=== PATIENT | female | born 1965 | race Caucasian/White ===

== ENCOUNTER → 2016-10-29 | Outpatient (REF) | payer OTHER ==
[2016-10-29 13:36] LABS: ALBUMIN 3.9 GM/DL (3.2-5.2); ALBUMIN/GLOBULIN RATIO 1.18 (1.00-1.93); ALKALINE PHOSPHATASE 94 U/L (45-117); ALT/SGPT 14 U/L (12-78); ANION GAP 9 MEQ/L (8-16); AST/SGOT 12 U/L (15-37); BILIRUBIN,TOTAL 0.7 MG/DL (0.2-1.0); BLOOD UREA NITROGEN 11 MG/DL (7-18); CALCIUM LEVEL 8.9 MG/DL (8.5-10.1); CARBON DIOXIDE LEVEL 26 MEQ/L (21-32); CHLORIDE LEVEL 109 MEQ/L (98-107); CHOLESTEROL LEVEL 216 MG/DL (<200); CREATININE FOR GFR 0.74 MG/DL (0.55-1.02); GLOMERULAR FILTRATION RATE > 60.0 (>51); GLUCOSE, FASTING 78 MG/DL (70-105); POTASSIUM SERUM 4.3 MEQ/L (3.5-5.1); SODIUM LEVEL 144 MEQ/L (136-145); TOTAL PROTEIN 7.2 GM/DL (6.4-8.2); TRIGLYCERIDES LEVEL 191 MG/DL (<150)
== END ==
LOC: M SFHCPLAZ 10:02
PROVIDERS: ATTEND Internal Medicine
DX: E78.5 Hyperlipidemia, unspecified (principal); E55.9 Vitamin D deficiency, unspecified

== ENCOUNTER 2016-12-27 17:52 | Emergency (ER) | payer OTHER ==
[~2016-12-27] VITALS: Ht 162.6 cm; Wt 62.6 kg
[2016-12-27] MEDS ORDERED: ZYRT10CA PO (18:13)
[2016-12-27] MEDS ORDERED: VITA400C29 PO (18:13)
[2016-12-27] MEDS ORDERED: FAMOTIDINE IV BAG 20 MG in APPROPRIATE DILUENT 1 EA IV ONE (18:30)
[2016-12-27] MEDS ORDERED: NS 1,000 ML IV ONE (18:30)
[2016-12-27] MEDS ORDERED: diphenhydrAMINE INJ 50MG/ML VIAL (J1200) IV ONE (18:30)
[2016-12-27] MEDS ORDERED: methylPREDNISolone INJ 125 MG/2 ML VIAL (J2930) IV ONE (18:30)
[2016-12-27 19:27] VITALS: BP 140/72
[2016-12-27] MEDS ORDERED: BENA25TA9 PO (19:55)
[2016-12-27] MEDS ORDERED: PRED20TA PO (19:55)
[2016-12-27] MEDS ORDERED: RANI15TA PO (19:55)
== END 2016-12-27 20:15 | disposition home or self-care (01) ==
LOC: M ED 18:49
DX: T78.40XA Allergy, unspecified, initial encounter (principal); L50.9 Urticaria, unspecified
CPT/HCPCS: 94760; 96361; 96365; 96366; 96375; 99283; J1200; J2930

== ENCOUNTER → 2017-08-05 | Outpatient (REF) | payer OTHER ==
[~2017-08-05] MED LIST: BENA25TA10 PO; PRED20TA PO; RANI15TA PO; VITA-110 PO; ZYRT10CA PO
== END ==
LOC: M SFHCWAGY 09:29
PROVIDERS: ATTEND Nurse Practitioner Family
DX: Z12.4 Encounter for screening for malignant neoplasm of cervix (principal)

== ENCOUNTER → 2017-08-12 | Outpatient (CLI) | payer OTHER ==
--- NOTE | 2017-08-12 18:10 | REPMRS ---
Patient History The patient states she had a clinical breast exam in 07/2017. Patient is postmenopausal. Family history of breast cancer in 2 maternal aunts. Benign excisional biopsy of the right breast, 1989. Taking estrogen. Digital Woman Screen Mammo: August 12, 2017 - Exam #: [id number] Bilateral CC and MLO view(s) were taken. Technologist: Spring Arias, Technologist Prior study comparison: July 26, 2016, digital woman screen mammo performed at [facility]. 2014, digital bilateral screening mammo, performed at [facility]. FINDINGS: There are scattered fibroglandular densities. There has been no change in the appearance of the mammogram from the prior studies. There is a mild amount of residual fibroglandular tissue which is fairly symmetric. There is no interval development of dominant mass, architectural distortion, or clustered microcalcification suggestive of malignancy. No significant changes when compared with prior studies. ASSESSMENT: BI-RADS/ACR category 1 mammogram. Negative. Recommendation Routine screening mammogram in 1 year (for women over age 40). This mammogram was interpreted with the aid of an FDA-approved computer-aided dectection system. A. Negative x-ray reports should not delay biopsy if a dominant or clinically suspicious mass is present. B. Four to eight percent of cancers are not identified by mammography. C. Adenosis and dense breast may obscure an underlying neoplasm. Electronically Signed By: Dionisio Jaramillo MD 08/12/17 1487
== END ==
LOC: M WHC 14:04
PROVIDERS: ATTEND Nurse Practitioner Family
DX: Z12.31 Encounter for screening mammogram for malignant neoplasm of breast (principal)

== ENCOUNTER → 2017-08-22 | Outpatient (CLI) | payer OTHER ==
--- NOTE | 2017-08-22 11:43 | REP ---
Limited pelvic, bladder sonography: History: Bladder prolapse. Findings: Transabdominal scanning demonstrates smooth bladder ventura. No extravesical lesion is seen. Pre-void bladder volume is calculated at 123 ml. Postvoid bladder volume is calculated at 9.8 ml. Emptying ureteral jets are confirmed on color Doppler interrogation of the bladder lumen bilaterally. Impression: No abnormality noted.
--- NOTE | 2017-08-22 11:53 | REP ---
Pelvic ultrasound including transabdominal and endovaginal imaging. The bladder is partially distended. The uterus is anteverted but the fundus is slightly retroflexed. The uterus is mildly enlarged measuring 11.1 x 4.8 x 5.5 cm. The endometrium measures 7.7 mm thickness. This would be thickened in a postmenopausal female but normal in a premenopausal female. The right ovary is normal size measuring 1.9 x 1.1 x 2.1 cm. There is no dominant mass or cyst in the right ovary. The left ovary is normal size measuring 2.6 x 2.1 x 2.6 cm. There is a 2 cm simple cyst in the right ovary. No free fluid in the pelvis. Impression: There is a 2 cm simple cyst in the left ovary. Otherwise, essentially negative pelvic ultrasound. Signed by Monroe Roa MD 08/22/2017 11:45 A
== END ==
LOC: M WHC 09:53
PROVIDERS: ATTEND Obstetrics & Gynecology
DX: N81.10 Cystocele, unspecified (principal); N81.6 Rectocele; N81.2 Incomplete uterovaginal prolapse

== ENCOUNTER → 2018-03-06 | Outpatient (REF) | payer OTHER ==
[2018-03-06 11:55] LABS: HEMOGLOBIN 15.2 g/dl (12.0-15.5); MEAN CORPUSCULAR HEMOGLOBIN 28.7 pg (27.0-33.0); MEAN CORPUSCULAR HGB CONC 34.5 g/dl (32.0-36.5); PLATELET COUNT, AUTOMATED 259 10^3/uL (150-450); RED CELL DISTRIBUTION WIDTH 13.2 % (11.5-14.5); WHITE BLOOD COUNT 5.1 10^3/uL (4.0-10.0)
[2018-03-06 12:42] LABS: ALBUMIN 3.9 GM/DL (3.2-5.2); ALBUMIN/GLOBULIN RATIO 1.22 (1.00-1.93); ALKALINE PHOSPHATASE 93 U/L (45-117); ALT/SGPT 26 U/L (12-78); ANION GAP 8 MEQ/L (8-16); AST/SGOT 13 U/L (7-37); BILIRUBIN,TOTAL 0.5 MG/DL (0.2-1.0); BLOOD UREA NITROGEN 12 MG/DL (7-18); CALCIUM LEVEL 8.9 MG/DL (8.5-10.1); CARBON DIOXIDE LEVEL 28 MEQ/L (21-32); CHLORIDE LEVEL 107 MEQ/L (98-107); CHOLESTEROL LEVEL 259 MG/DL (<200); CHOLESTEROL RISK RATIO 4.046 (<5); CREATININE FOR GFR 0.72 MG/DL (0.55-1.30); GLOMERULAR FILTRATION RATE > 60.0 (>51); GLUCOSE, FASTING 90 MG/DL (70-100); HDL CHOLESTEROL 64 MG/DL (>40); LDL CHOLESTEROL 136.8 MG/DL (<100); NON-HDL-C 195 MG/DL; POTASSIUM SERUM 4.3 MEQ/L (3.5-5.1); SODIUM LEVEL 143 MEQ/L (136-145); TOTAL PROTEIN 7.1 GM/DL (6.4-8.2); TRIGLYCERIDES LEVEL 291 MG/DL (<150)
[2018-03-06 12:43] LABS: TOTAL 25(OH) VITAMIN D 17.1 NG/ML (30.0-100.0)
== END ==
LOC: M SFHCPLAZ 10:07
DX: J45.909 Unspecified asthma, uncomplicated (principal); E78.5 Hyperlipidemia, unspecified; E55.9 Vitamin D deficiency, unspecified

== ENCOUNTER → 2018-08-25 | Outpatient (CLI) | payer OTHER ==
[~2018-08-25] MED LIST changes: +MONT10TA2
--- NOTE | 2018-08-25 14:37 | REPMRS ---
Patient History The patient states she had a clinical breast exam in 08/2018. Patient is postmenopausal. Family history of breast cancer in maternal aunt, breast cancer in maternal aunt, pancreatic cancer at age 60 in maternal aunt, prostate cancer at age 70 in maternal uncle, pancreatic cancer at age 50 or over in paternal uncle, breast cancer at age 50 or over in paternal aunt. Benign excisional biopsy of the right breast, 1989. Taking estrogen for 1 year. Digital Woman Screen Mammo: August 25, 2018 - Exam #: [id number] Bilateral CC and MLO view(s) were taken. Technologist: Spring Arias, Technologist Prior study comparison: August 12, 2017, digital woman screen mammo performed at [facility]. July 26, 2016, digital woman screen mammo performed at [facility]. FINDINGS: There are scattered fibroglandular densities. There has been no change in the appearance of the mammogram from the prior studies. There is a mild amount of scattered fibroglandular density which is fairly symmetric. There is no interval development of dominant mass, architectural distortion, or clustered microcalcification suggestive of malignancy. 3-D tomosynthesis shows no additional findings. Assessment: BI-RADS/ACR category 1 mammogram. Negative. Recommendation Routine screening mammogram of both breasts in 1 year (for women over age 40). This patient's Lifetime Breast Cancer RIsk is estimated at 14.4 %. This mammogram was interpreted with the aid of an FDA-approved computer-aided dectection system. Electronically Signed By: Paul Baker MD 08/25/18 [id number]
== END ==
LOC: M WHC 08:55
PROVIDERS: ATTEND Nurse Practitioner Family
DX: Z12.31 Encounter for screening mammogram for malignant neoplasm of breast (principal); Z78.0 Asymptomatic menopausal state; Z86.018 Personal history of other benign neoplasm

== ENCOUNTER → 2019-05-13 | Outpatient (CLI) | payer OTHER ==
[2019-05-13 13:40] LABS: HEMATOCRIT 45.1 % (36.0-47.0); HEMOGLOBIN 15.3 g/dl (12.0-15.5); MEAN CORPUSCULAR HEMOGLOBIN 29.4 pg (27.0-33.0); MEAN CORPUSCULAR HGB CONC 33.9 g/dl (32.0-36.5); MEAN CORPUSCULAR VOLUME 86.7 fl (80.0-96.0); PLATELET COUNT, AUTOMATED 252 10^3/uL (150-450)
[2019-05-13 14:07] LABS: ALBUMIN 3.7 GM/DL (3.2-5.2); ALT/SGPT 26 U/L (12-78); BILIRUBIN,TOTAL 0.5 MG/DL (0.2-1.0); BLOOD UREA NITROGEN 10 MG/DL (7-18); CALCIUM LEVEL 9.3 MG/DL (8.5-10.1); CARBON DIOXIDE LEVEL 31 MEQ/L (21-32); CHLORIDE LEVEL 105 MEQ/L (98-107); CHOLESTEROL LEVEL 317 MG/DL (<200); CHOLESTEROL RISK RATIO 5.283 (<5); CREATININE FOR GFR 0.78 MG/DL (0.55-1.30); GLOMERULAR FILTRATION RATE > 60.0 (>51); GLUCOSE, FASTING 85 MG/DL (70-100); HDL CHOLESTEROL 60 MG/DL (>40); LDL CHOLESTEROL 210 MG/DL (<100); NON-HDL-C 257 MG/DL; POTASSIUM SERUM 4.6 MEQ/L (3.5-5.1); SODIUM LEVEL 142 MEQ/L (136-145); THYROID STIMULATING HORMONE 0.448 uIU/ML (0.358-3.740); TOTAL 25(OH) VITAMIN D 24.1 NG/ML (30.0-100.0); TRIGLYCERIDES LEVEL 234 MG/DL (<150)
== END ==
LOC: M WUC 10:17
PROVIDERS: ATTEND Internal Medicine
DX: J45.909 Unspecified asthma, uncomplicated (principal); E78.5 Hyperlipidemia, unspecified; E55.9 Vitamin D deficiency, unspecified

== ENCOUNTER → 2019-10-13 | Outpatient (CLI) | payer OTHER ==
--- NOTE | 2019-10-13 12:16 | REP ---
BILATERAL SCREENING DIGITAL MAMMOGRAM WITH 3D TOMOSYNTHESIS: There are no palpable abnormalities or other breast complaints. The the patient states she had a clinical breast examination October,. The the patient states she performs self-breast examinations six times per year [facility] Lifetime [facility] Cancer Risk Score is: 14.1% . Comparison is 07/26/2016. There are scattered areas of fibroglandular density. There is no dominant mass, micro calcific cluster or architectural distortion that would indicate malignancy. There are no additional findings on 3D tomosynthesiss. There is no change from the prior study. Impression: BIRADS/ACR category 1 mammogram. Negative. Recommendation: Routine annual screening mammography. This mammogram was interpreted with the aid of a FDA approved computer-aided detection system. A. Negative mammogram reports should not delay biopsy if a dominant or clinically suspicious mass is present. B. Not all breast cancers are identified by mammography or tomosynthesis. C. Adenosis and dense breasts may obscure an underlying neoplasm. Patient letter M1. Electronically Signed by Monroe Roa MD 10/13/2019 12:07 P
== END ==
LOC: M WHC 10:21
PROVIDERS: ATTEND Nurse Practitioner Family
DX: Z12.31 Encounter for screening mammogram for malignant neoplasm of breast (principal)

== ENCOUNTER → 2020-05-12 | Outpatient (CLI) | payer OTHER ==
[~2020-05-12] MED LIST changes: -MONT10TA2; +MONT10TA4
[2020-05-12 13:41] LABS: HEMATOCRIT 45.4 % (36.0-47.0); HEMOGLOBIN 15.1 g/dl (12.0-15.5); MEAN CORPUSCULAR HEMOGLOBIN 28.8 pg (27.0-33.0); MEAN CORPUSCULAR HGB CONC 33.3 g/dl (32.0-36.5); MEAN CORPUSCULAR VOLUME 86.5 fl (80.0-96.0); PLATELET COUNT, AUTOMATED 254 10^3/uL (150-450); RED BLOOD COUNT 5.25 10^6/uL (4.00-5.40); WHITE BLOOD COUNT 4.9 10^3/uL (4.0-10.0)
[2020-05-12 13:51] LABS: ALBUMIN 3.8 GM/DL (3.2-5.2); ALT/SGPT 27 U/L (12-78); BILIRUBIN,TOTAL 0.6 MG/DL (0.2-1.0); BLOOD UREA NITROGEN 12 MG/DL (7-18); CARBON DIOXIDE LEVEL 29 MEQ/L (21-32); CHLORIDE LEVEL 107 MEQ/L (98-107); CHOLESTEROL LEVEL 335 MG/DL (<200); CHOLESTEROL RISK RATIO 5.491 (<5); CREATININE FOR GFR 0.82 MG/DL (0.55-1.30); GLOMERULAR FILTRATION RATE > 60.0 (>51); GLUCOSE, FASTING 101 MG/DL (70-100); HDL CHOLESTEROL 61 MG/DL (>40); LDL CHOLESTEROL 220 MG/DL (<100); NON-HDL-C 274 MG/DL; POTASSIUM SERUM 4.7 MEQ/L (3.5-5.1); SODIUM LEVEL 143 MEQ/L (136-145); THYROID STIMULATING HORMONE 0.339 uIU/ML (0.358-3.740); TRIGLYCERIDES LEVEL 272 MG/DL (<150)
== END ==
LOC: M PLALAB 08:24
PROVIDERS: ATTEND Internal Medicine
DX: Z00.00 Encounter for general adult medical examination without abnormal findings (principal); J45.909 Unspecified asthma, uncomplicated; E55.9 Vitamin D deficiency, unspecified; E78.5 Hyperlipidemia, unspecified

== ENCOUNTER → 2020-10-04 | Outpatient (CLI) | payer OTHER ==
[~2020-10-04] MED LIST changes: +CETI10CH PO; +D31000TA2 PO; +LIPI20TA PO; +MONT10TA10 PO; -MONT10TA4
--- NOTE | 2020-10-05 09:03 | REP ---
INDICATION: RT FLANK PAIN COMPARISON: 08/31/2019 TECHNIQUE: Real time spivey scale ultrasound examination using curved array transducer. FINDINGS: Bilateral kidneys are relatively normal in contour, size, echogenicity and reniform shape. Increased central sinus fat noted and consistent with medical renal disease. No hydronephrosis, nephrolithiasis, or renal mass lesion. No perinephric fluid collection. Right kidney measures 11.4 x 5.7 x 4.8 cm and includes 1.5 cm midpole cortical cyst. Left kidney measures 11.4 x 5.2 x 5.3 cm and includes 2.1 x 1.4 x 1.7 cm suspected complex cyst. Bladder is normal and bilateral ureteral jets are identified. IMPRESSION: 1. No evidence for hydronephrosis. 2. Suspected complex left renal cyst. Consider pre and postcontrast CT of the abdomen for further investigation. <Electronically signed by Jama Rodarte > 10/05/20 0843
== END ==
LOC: M RAD 13:57
PROVIDERS: ATTEND Internal Medicine
DX: R10.9 Unspecified abdominal pain (principal); N28.1 Cyst of kidney, acquired

== ENCOUNTER → 2020-10-04 | Outpatient (REF) | payer OTHER ==
[2020-10-04 10:59] LABS: BASO % 0.8 % (0.0-1.0); EOS # 0.2 10^3/uL (0.0-0.5); EOS % 3.6 % (0.0-3.0); HEMATOCRIT 44.7 % (36.0-47.0); HEMOGLOBIN 14.8 g/dl (12.0-15.5); LYMPH # 1.1 10^3/uL (1.5-5.0); LYMPH % 20.7 % (24.0-44.0); MEAN CORPUSCULAR HEMOGLOBIN 28.1 pg (27.0-33.0); MEAN CORPUSCULAR HGB CONC 33.1 g/dl (32.0-36.5); MONO # 0.6 10^3/uL (0.0-0.8); MONO % 10.5 % (0.0-5.0); NEUTROPHILS # 3.4 10^3/uL (1.5-8.5); NEUTROPHILS % 63.8 % (36.0-66.0); PLATELET COUNT, AUTOMATED 272 10^3/uL (150-450); RED BLOOD COUNT 5.26 10^6/uL (4.00-5.40); WHITE BLOOD COUNT 5.3 10^3/uL (4.0-10.0)
[2020-10-04 11:02] LABS: APPEARANCE, URINE CLEAR (CLEAR); BACTERIA, URINE AUTO 1+ (NEGATIVE); BILIRUBIN, URINE AUTO NEGATIVE (NEGATIVE); BLOOD, URINE BLOOD NEGATIVE (NEGATIVE); COLOR, URINE STRAW (YELLOW); GLUCOSE, URINE (UA) AUTO NEGATIVE (NEGATIVE); KETONE, URINE AUTO NEGATIVE (NEGATIVE); LEUKOCYTE ESTERASE, URINE AUTO TRACE (NEGATIVE); NITRITE, URINE AUTO NEGATIVE (NEGATIVE); PROTEIN, URINE AUTO NEGATIVE (NEGATIVE); RBC, URINE AUTO 1 /HPF (0-3); SPECIFIC GRAVITY URINE AUTO 1.008 (1.002-1.035); SQUAMOUS EPITHELIAL CELL UR AU 2 /HPF (0-6); UROBILINOGEN, URINE AUTO 0.2 mg/dL (0.0-2.0); WBC, URINE AUTO 2 /HPF (0-3)
[2020-10-04 11:26] LABS: BLOOD UREA NITROGEN 14 MG/DL (7-18); CALCIUM LEVEL 9.6 MG/DL (8.5-10.1); CARBON DIOXIDE LEVEL 32 MEQ/L (21-32); CHLORIDE LEVEL 104 MEQ/L (98-107); CREATININE FOR GFR 0.69 MG/DL (0.55-1.30); GLOMERULAR FILTRATION RATE > 60.0 (>51); GLUCOSE, FASTING 88 MG/DL (70-100); POTASSIUM SERUM 4.8 MEQ/L (3.5-5.1); SODIUM LEVEL 140 MEQ/L (136-145)
== END ==
LOC: M SFHCPLAZ 08:01
PROVIDERS: ATTEND Internal Medicine
DX: R10.9 Unspecified abdominal pain (principal)

== ENCOUNTER → 2020-10-13 | Outpatient (CLI) | payer OTHER ==
[~2020-10-13] MED LIST changes: -CETI10CH PO; -D31000TA2 PO; +ISOVUE-370 76% 100ML VIAL As Ordered ONE; -LIPI20TA PO; +MONT10TA10; -MONT10TA10 PO
--- NOTE | 2020-10-15 06:43 | REP ---
INDICATION: RT FLANK PAIN. COMPARISON: None TECHNIQUE: Axial precontrast and contrast-enhanced images of the abdomen using 100 cc Isovue 370 intravenous contrast material. Coronal and sagittal reformations obtained.. This CT examination was performed using the following dose reduction techniques: Automated exposure control, adjustment of mA and/or kv according to the patient's size, and the use of iterative reconstruction technique. FINDINGS: Liver demonstrates few scattered hypodensities up to 2 cm likely representing cysts. Spleen, pancreas, and bilateral adrenal glands are normal. Cholelithiasis noted without acute cholecystitis. Kidneys demonstrate few bilateral nonobstructing intrarenal calculi measuring up to 2 mm in the right kidney and 5 mm in the left kidney along with bilateral hypodensities up to 2 cm suggesting cysts. Visualized portions of the enteric system are normal. No ascites. No free air. No intraperitoneal or retroperitoneal adenopathy. Abdominal aorta and vasculature appear normal. Musculoskeletal structures are intact and without acute osseous abnormality. IMPRESSION: 1. Bilateral renal calculi measuring up to 5 mm in the left kidney without hydronephrosis or obstructing ureteral calculus. 2. Hepatic and renal hypodensities suggesting cysts. 3. Cholelithiasis. No acute abdominopelvic pathology appreciated. <Electronically signed by Jama Rodarte > 10/15/20 0651
== END ==
LOC: M RAD 14:55
PROVIDERS: ATTEND Internal Medicine
DX: R10.9 Unspecified abdominal pain (principal); N20.0 Calculus of kidney; K80.20 Calculus of gallbladder without cholecystitis without obstruction
CPT/HCPCS: 74170; Q9967

== ENCOUNTER → 2020-10-17 | Outpatient (CLI) | payer OTHER ==
[~2020-10-17] MED LIST changes: -ISOVUE-370 76% 100ML VIAL As Ordered ONE
--- NOTE | 2020-10-17 12:48 | REPMRS ---
Patient History The patient states she had a clinical breast exam in 10/2020. Family history of breast cancer in maternal aunt, breast cancer in maternal aunt, pancreatic cancer at age 60 in maternal aunt, prostate cancer at age 70 in maternal uncle, pancreatic cancer at age 50 or over in paternal uncle, breast cancer at age 50 or over in paternal aunt. Benign excisional biopsy of the right breast, 1989. Took estrogen for 2 years. Digital Woman Screen Mammo: October 17, 2020 - Exam #: [id number] Bilateral CC and MLO view(s) were taken. Technologist: Spring Arias, Technologist Prior study comparison: October 13, 2019, bilateral digital woman screen mammo performed at [facility]. August 25, 2018, bilateral digital woman screen mammo performed at [facility]. August 12, 2017, digital woman screen mammo performed at [facility]. FINDINGS: The breast tissue is almost entirely fat. The Volpara volumetric breast density category is: A. There has been no change in the appearance of the mammogram from the prior studies. There is no interval development of dominant mass, architectural distortion, or grouped microcalcification typical of malignancy. 3-D tomosynthesis shows no additional findings. Assessment: BI-RADS/ACR category 1 mammogram. Negative Mammogram. Recommendation Routine screening mammogram of both breasts in 1 year (for women over age 40). This patient's [facility] Lifetime Breast Cancer RIsk is estimated at 13.8 %. This mammogram was interpreted with the aid of an FDA-approved computer-aided dectection system. Electronically Signed By: Paul Baker MD 10/17/20 3118
== END ==
LOC: M WHC 11:08
PROVIDERS: ATTEND Nurse Practitioner Family
DX: Z12.31 Encounter for screening mammogram for malignant neoplasm of breast (principal)

== ENCOUNTER → 2020-10-22 | Outpatient (CLI) | payer OTHER ==
[~2020-10-22] MED LIST changes: +CETI10CH PO; +D31000TA2 PO; +LIPI20TA PO; -MONT10TA10; +MONT10TA10 PO
== END ==
LOC: M LABSMTC 07:57
PROVIDERS: ATTEND Anesthesiology
DX: Z01.812 Encounter for preprocedural laboratory examination (principal); Z20.822 Contact with and (suspected) exposure to COVID-19

== ENCOUNTER 2020-10-27 07:05 | Day surgery (SDC) | payer OTHER ==
[~2020-10-27] VITALS: Ht 162.6 cm; Wt 75.3 kg
[~2020-10-27 07:05] MED LIST changes: +NS 1,000 ML IV ONE
--- OUTSIDE RECORDS SUMMARY | 2020-10-27 07:11 | CCD ---
Author Author [facility] mojio ems Organization [facility] mojio ems Address Unknown Phone Unavailable Care Team Providers Care Tassel Snipper Name Role Phone Nestor Pearl Unavailable PROBLEMS Type Condition ICD9-CM Code BUE75-CD Code Onset Dates Condition S tatus SNOMED Code Notes Problem Asthma J45.909 Active 077036877 This is manage d by her bone tender with immunotherapy and allergy shots, Singulair and Zyrtec, and there is no active flare. She has a rescue inhaler to use as needed. She does not appear to need a controller inhaler. Problem Episodic tension-type headache, not intractable G4 4.219 Active 911981161 Problem Colonoscopy refused Z53.20 Active [id number] 100 She was referred in 2016 but did not keep the appointment. We will continue to try to encourage her to pursue testing. Problem Vitamin D deficiency E55.9 Active 62975482 Sh sheba has a history of a low vitamin D level of 7 in March 2016. She is on 2000 units a day and her most recent level was 17 in February 2018. Remains on supplementation, 4000 units daily and a repeat vitamin D level was 27 in May 2020. Problem Hyperlipidemia E78.5 Active 22020098 She has a history of fairly profound hyperlipidemia and atorvastatin was started in May 2020. 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 Active 27917341 Problem Vaginal relaxation N81.89 Active 55537835 ALLERGIES Allergen (clinical drug ingredient) Drug/Non Drug Allergy do cumented on EMR Reaction Allergy Type Onset Date Status albuterol Albuterol Hives Drug Allergy Active Penicillin (For Allergies Use Only) Hives Drug Allerg y Active ENCOUNTERS from 1966 to 2020-10-01 Encounter Location Date Provider [facility] [address] [place] [address] Sep, Nestor Dae Asthma J45.909 ; Vitamin D deficiency E5 5.9 ; Hyperlipidemia E78.5 and Encounter for HCV screening test for low risk patient Z11.59 IMMUNIZATIONS Vaccine Route Administration Date Status Influenza (6mo & up) Fluzone Unknown Jun 14, 2017 Ref used SOCIAL HISTORY Tobacco Use: Social History Observation Description Date Details (start date - stop date) Never Smoker Sex Assigned At : Social History Observation Description Sex Assigned At Unknown Audit Question Answer Notes Total Score: 0 Interpretation: Alcohol Education Pentecostal: Question Answer Notes [employer] 08 [employer] Sexual Hx: Question Answer Notes Had sex in the last 12 months (vaginal, oral, or anal)? Yes Have you ever had an STD? No with Men only Drug and Alcohol Question Answer Notes Total Score: 0 Interpretation: No problems reported Alcohol Screening: Question Answer Notes Did you have a drink containing alcohol in the past year? No Points 0 Interpretation Negative BMI Care Goal Follow-Up Question Answer Notes Above Normal BMI Follow-Up Lifestyle education regarding t Tobacco Use: Question Answer Notes Are you a: never smoker never smoker REASON FOR REFERRAL No Information VITAL SIGNS No information MEDICATIONS Medication SIG (Take, Route, Frequency, Duration) Notes Start Da te End Date Status Magnesium 250 MG 1 tablet with a meal Orally Once a day for 30 day(s) Active Zyrtec Allergy 10 MG 1 tablet Orally Once a day Active Xopenex HFA 45 MCG/ACT 2 puff as needed Inhalation every 4 hrs Active Vitamin D 125 MCG (5000 UT) 1 tablet Orally Once a day Apr, Active Estrace 0.1 MG/GM 1 gm Vaginal twice a month for 90 days Aug, Active Singulair 10 MG 1 tab Orally Daily A ctive May Have ___ allergy injections weekly _ every 3 weeks Active PROCEDURES No Information RESULTS No Results REASON FOR VISIT Needs appointment and labs in May 2021 MEDICAL (GENERAL) HISTORY Type Description Date Medical History refuses colonoscopy 03/06/18 Medical History Myriad My Risk Genetic test neg for muta tion 2017 Medical History Lifetime breast cancer risk 11 % Medical History Asthma Medical History Vitamin D deficiency Medical History Hyperlipidemia Medical History Episodic tension-type headache, not intr actable Surgical History tonsillectomy child Surgical History breast biopsy 1987 Surgical History D&C 1994 Surgical History right stapedectomy with laser 05/07/2016 Surgical History Total vaginal hysterectomy a nd BSO ,colporrhaphy ,colpexy, enterocele repair and cysto Dr Larry 10/04/17 Hospitalization History Surgical and childbirth related Hospitalization History Hyster Goals Section No Information Health Concerns No Information MEDICAL EQUIPMENT No Information MENTAL STATUS No Information FUNCTIONAL STATUS No Information ASSESSMENTS Encounter Date Diagnosis Assessment Notes Treatment Notes Treatm ent Clinical Notes Sep, Asthma (ICD-10 - J45.909) This is manage d by her bone tender with immunotherapy and allergy shots, Singulair and Zyrtec, and there is no active flare. She has a rescue inhaler to use as needed. She does not appear to need a controller inhaler. Sep, Vitamin D deficiency (ICD-10 - E55.9) Ayanna scruggs has a history of a low vitamin D level of 7 in March 2016. She is on 2000 units a day and her most recent level was 17 in February 2018. Remains on supplementation, 4000 units daily and a repeat vitamin D level was 27 in May 2020. Sep, Hyperlipidemia (ICD-10 - E78.5) She has a history of fairly profound hyperlipidemia and atorvastatin was started in May 2020. Sep, Encounter for HCV screening test for low risk patient (ICD-10 - Z11.59) PLAN OF TREATMENT Future Test Test Name Order Date CBC with Differential [id number] Comprehensive Metabolic Profile (CMP) [id number] LIPID PANEL (CARDIAC RISK) [id number] HEPATITIS C ANTIBODY INDEX [id number] TSH [id number] Next Appt Details Provider Name:Jessica Powers, 2020-10-17 11:00:00 AM, [address] [place], [address], Provider Name:Nestor Dae, 2021-05-16 08 :30:00 AM, [address] [place], [address], Insurance Providers Payer Name Payer Address Payer Phone Insured Name Patient Relati onship to Insured Coverage Start Date Coverage End Date [facility] [id number] [facility] [phone] MYRIAM NANCE
--- OUTSIDE RECORDS SUMMARY | 2020-10-27 07:11 | CCD | Continuity of Care Document ---
Author Author Luann LOPEZ Organization Unknown Address [address], [address], [place] [address] Phone [phone] Care Team Providers Care Fight Manager Name Role Phone Nestor Pearl MD AUTM [phone] Problems Active Problems Provider Date Allergic rhinitis due to pollen Onset: 1 Note: On IT. 4++ reaction to ragweed wit h 3+ reaction to various tree pollen and weeds on scratch test. 4++ reaction to grasses on intradermal test. Completed 2014. Allergic rhinitis due to animal dander O nset: 06/30/2015 Note: On IT. 4+ reaction to cat with 3+ reaction to dog dander on intradermal test. Completed 2014. Allergic rhinitis due to house dust mite Colton Lopez M.D. Onset: 06/30/2015 Note: On IT. 4++ reaction to dust mites on intradermal test. Completed 2014. Allergic rhinitis caused by mold Colton Lopez M.D. O nset: 06/30/2015 Note: On IT. 3+ reaction to molds on in tradermal test. Completed 2014. Mild intermittent asthma PHIL Garcia Onset: 2018 Social History Type Date Description Comments Sex Unknown Tobacco Use Reviewed: 06/30/20 Patient has never smoked Smoking Status Reviewed: 06/30/20 Patient has never smoked Allergies, Adverse Reactions, Alerts Active Allergies Reaction Severity Comments Date Albuterol hives 05/02/2019 Penicillins hives 05/02/2019 Medications Active Medications SIG Qnty Indications Ordering Provide r Date Montelukast Sodium 10mg Tablets take 1 tablet once daily in the evening 90tabs J30.1 Carlos T Overho lt, PA 06/01/2019 Epipen 2-Serafin 0.3mg/0 .3ML Solution Auto-Inject inject 0.3 milliliter (0.3 mg) by intram uscular route once as needed for anaphylaxis 2units J30.1 Colton Lopez M.D. 2016 Xopenex HFA 45mcg/Act Aerosol inhale 2 puffs (90 mcg) by inhalation route every 4-6 hours as needed Unknown 07/04/2017 Cetirizine HCL 10mg Tablets 1 tab by mouth every day as needed itching and sneezing Unknown Atorvastatin Calcium 20mg Tablets Nestor Pearl MD Vitamin D3 50mcg (1999) Capsules Unknown Medications Administered in Office Medication SIG Qnty Indications Ordering Provider Date Allergy Injection 2 Or More Injection Colton Lopez M.D. 10/18/2020 Allergy Injection 2 Or More Injection Colton Lopez M.D. 10/05/2020 Allergy Injection 2 Or More Injection Colton Lopez M.D. 09/27/2020 Allergy Injection 2 Or More Injection Colton Lopez M.D. 09/21/2020 Allergy Injection 2 Or More Injection Colton Lopez M.D. 09/14/2020 Allergy Injection 2 Or More Injection Colton Lopez M.D. 09/04/2020 Allergy Injection 2 Or More Injection Colton Lopez M.D. 08/25/2020 Allergy Injection 2 Or More Injection Colton Lopez M.D. 08/18/2020 Allergy Injection 2 Or More Injection Colton Lopez M.D. 08/10/2020 Allergy Injection 2 Or More Injection Colton Lopez M.D. 08/03/2020 Allergy Injection 2 Or More Injection Colton Lopez M.D. 07/27/2020 Allergy Injection 2 Or More Injection Colton Loepz M.D. 07/20/2020 Allergy Injection 2 Or More Injection Colton Lopez M.D. 07/13/2020 Allergy Injection 2 Or More Injection Colton Lopez M.D. 07/06/2020 Allergy Injection 2 Or More Injection Colton Lopez M.D. 06/29/2020 Allergy Injection 2 Or More Injection Colton Lopez M.D. 06/22/2020 Allergy Injection 2 Or More Injection Colton Lopez M.D. 06/15/2020 Allergy Injection 2 Or More Injection RAYMUNDO Fallon 06/09/2020 Allergy Injection 2 Or More Injection Colton Lopez M.D. 06/09/2020 Allergy Injection 2 Or More Injection Colton Lopez M.D. 06/02/2020 Allergy Injection 2 Or More Injection Colton Lopez M.D. 05/19/2020 Allergy Injection 2 Or More Injection Colton Lopez M.D. 05/12/2020 Allergy Injection 2 Or More Injection Colton Lopez M.D. 05/05/2020 Allergy Injection 2 Or More Injection Colton Lopez M.D. 12/09/2019 Allergy Injection 2 Or More Injection Colton Lopez M.D. 11/26/2019 Allergy Injection 2 Or More Injection Colton Lopez M.D. 10/06/2019 Allergy Injection 2 Or More Injection Colton Lopez M.D. 09/15/2019 Allergy Injection 2 Or More Injection Colton Lopez M.D. 09/01/2019 Allergy Injection 2 Or More Injection Colton Lopez M.D. 08/20/2019 Allergy Injection 2 Or More Injection Colton Lopez M.D. 07/09/2019 Allergy Injection 2 Or More Injection Colton Lopez M.D. 06/16/2019 Allergy Injection 2 Or More Injection Colton Lopez M.D. 05/28/2019 Allergy Injection 2 Or More Injection Colton Lopez M.D. 05/21/2019 Allergy Injection 2 Or More Injection Colton Lopez M.D. 05/12/2019 Immunizations Description No Information Available Vital Signs Date Vital Result Comment 06/30/2020 10:08am Weight 156.12 lb Height 63.5 inches 5'3.50" Heart Rate 69 /min Respiratory Rate 18 /min BP Systolic 123 mmHg BP Diastolic 76 mmHg BMI (Body Mass Index) 27.2 kg/m2 07/02/2019 10:00am Weight 152.38 lb Height 63.75 inches 5'3.75" Heart Rate 68 /min Respiratory Rate 20 /min BP Systolic 150 mmHg BP Diastolic 77 mmHg BMI (Body Mass Index) 26.4 kg/m2 Results Description No Information Available Procedures Date Code Description Status 10/18/2020 84911 Allergy Injection 2 Or More Comp leted 10/05/2020 78217 Allergy Injection 2 Or More Comp leted 09/27/2020 31243 Allergy Injection 2 Or More Comp leted 09/21/2020 15268 Allergy Injection 2 Or More Comp leted 09/14/2020 71173 Allergy Injection 2 Or More Comp leted 09/04/2020 22003 Allergy Injection 2 Or More Comp leted 08/25/2020 37888 Allergy Injection 2 Or More Comp leted 08/18/2020 50962 Allergy Injection 2 Or More Comp leted 08/10/2020 65000 Allergy Injection 2 Or More Comp leted 08/03/2020 69318 Allergy Injection 2 Or More Comp leted 07/27/2020 19920 Allergy Injection 2 Or More Comp leted 07/20/2020 24359 Allergy Injection 2 Or More Comp leted 07/13/2020 04499 Allergy Injection 2 Or More Comp leted 07/06/2020 02766 Allergy Injection 2 Or More Comp leted 06/30/2020 22176 Bronchodilation Resp onsiveness Spirometry Pre/Post Bronchodil Adm Completed 06/29/2020 91111 Allergy Injection 2 Or More Comp leted 06/22/2020 24646 Allergy Injection 2 Or More Comp leted 06/15/2020 86687 Allergy Injection 2 Or More Comp leted 06/09/2020 90954 Allergy Injection 2 Or More Comp leted 06/09/2020 12846 Allergy Injection 2 Or More Comp leted 06/02/2020 53519 Allergy Injection 2 Or More Comp leted 05/19/2020 16181 Allergy Injection 2 Or More Comp leted 05/12/2020 02540 Allergy Injection 2 Or More Comp leted 05/05/2020 37531 Allergy Injection 2 Or More Comp leted 04/27/2020 58828 Allergy Antigens Single Or Multi ple Completed Medical Devices Description No Information Available Encounters Type Date Location Provider Dx Diagnosis Office Visit 06/30/2020 10:00a Main Office Colton Lopez M.D. J30.1 Allergic rhinitis due to pollen J30.81 Allergic rhinitis due to ani mal (cat) (dog) hair and dander J30.89 Other allergic rhinitis J45.20 Mild intermittent asthma, un complicated Assessments Date Code Description Provider 10/18/2020 J30.1 Allergic rhinitis due to pollen Colton Lopez M.D. 10/18/2020 J30.81 Allergic rhinitis due to animal (cat) (dog) hair and dander Colton Lopez M.D. 10/18/2020 J30.89 Other allergic rhinitis Colton Lopez M.D. Plan of Treatment Future Appointment(s):* 06/29/2021 10:00 am - Colton Lopez M.D. at Main Office 06/30/2020 - Colton Lopez M.D.* J30.1 Allergic rhinitis due to pollen* Recommendations:* Effective allergy avoidance measures were reviewed and recommended. She should continue on allergen immunotherapy as per protocol. Risks and benefits associated with allergen IT were reviewed. Should continue taking Singulair daily as directed. It was explained that Singulair should not only help with her mild intermittent asthma, but also nasal congestion associated with her allergic rhinitis. She may take oral antihistamine (cetirizine) as needed for itching and sneezing as well as on days she gets her allergy injections. If her symptoms become more persistent, may consider to add steroid-based nasal spray (i.e., Flonase) to the treatment plan. * J30.81 Allergic rhinitis due to animal (cat) (dog) hair and dander* Recommendations:* Effective allergy avoidance measures were reviewed and recommended. Should continue on allergen immunotherapy as per protocol. See additional recommendations above. * J30.89 Allergic rhinitis due to dust mites and mold spores.* Recommendations: * Effective allergy avoidance measures were reviewed and recommended. Should continue on allergen immunotherapy as per protocol. See additional recommendations above. * J45.20 Mild intermittent asthma, uncomplicated* Recommendations:* Should continue taking Singulair daily as directed. It was advised that Singulair should not only help with nasal congestion associated with her allergic rhinit is, but also her mild intermittent asthma. She should continue to use ventolin as needed every 4-6 hours for cough, wheeze or SOB. May use Ventolin with exercise, 15-30 minutes prior to activity as needed. Should symptoms increase or become more persistent may consider a low dose ICS. * All * Follow up:* 12 months with PFT. Sooner if needed. Functional Status Description No Information Available Mental Status Description No Information Available Referrals Description No Information Available
--- OUTSIDE RECORDS SUMMARY | 2020-10-27 07:11 | CCD ---
Author Author Caodaism [facility] [employer] ems Organization [facility] [employer] ems Address Unknown Phone Unavailable Care Team Providers Care General Ophthalmologist Name Role Phone Nestor Pearl Unavailable PROBLEMS Type Condition ICD9-CM Code GTX22-LV Code Onset Dates Condition S tatus SNOMED Code Notes Problem Asthma J45.909 Active 647486210 This is manage d by her mounted police with immunotherapy and allergy shots, Singulair and Zyrtec, and there is no active flare. She has a rescue inhaler to use as needed. She does not appear to need a controller inhaler. Problem Episodic tension-type headache, not intractable G4 4.219 Active 878653524 Problem Colonoscopy refused Z53.20 Active 023213751180 100 She was referred in 2016 but did not keep the appointment. We will continue to try to encourage her to pursue testing. Problem Vitamin D deficiency E55.9 Active 80793059 Sh sheba has a history of a low vitamin D level of 7 in March 2016. She is on 2000 units a day and her most recent level was 17 in February 2018. Remains on supplementation, 4000 units daily and a repeat vitamin D level was 27 in May 2020. Problem Hyperlipidemia E78.5 Active 86770730 She has a history of fairly profound hyperlipidemia and atorvastatin was started in May 2020. 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 Active 83632939 Problem Vaginal relaxation N81.89 Active 35300005 ALLERGIES Allergen (clinical drug ingredient) Drug/Non Drug Allergy do cumented on EMR Reaction Allergy Type Onset Date Status albuterol Albuterol Hives Drug Allergy Active Penicillin (For Allergies Use Only) Hives Drug Allerg y Active ENCOUNTERS from 1966 to 2020-10-03 Encounter Location Date Provider Diagnosis [facility] [address] [place] [address] Sep, [facility] IMMUNIZATIONS Vaccine Route Administration Date Status Influenza (6mo & up) Fluzone Unknown Jun 14, 2017 Ref used SOCIAL HISTORY Tobacco Use: Social History Observation Description Date Details (start date - stop date) Never Smoker Sex Assigned At : Social History Observation Description Sex Assigned At Unknown Audit Question Answer Notes Total Score: 0 Interpretation: Alcohol Education Uatsdin: Question Answer Notes Uatsdin 08 Amish Sexual Hx: Question Answer Notes Had sex [...] Information RESULTS No Results REASON FOR VISIT medical issues MEDICAL (GENERAL) HISTORY Type Description Date Medical [...] No Information FUNCTIONAL STATUS No Information ASSESSMENTS No Information PLAN OF TREATMENT Next Appt Details Provider Name:Nestor Pearl, 2020-10-04 07 :30:00 AM, [address] [place] [address], [phone], Provider Name:Jessicamarino Powers, 2020-10-17 11:00:00 AM, [address] [place] [address], [phone], Provider Name:Nestor Pearl, 2021-05-16 08 :30:00 AM, [address] [place] [address], [phone], Insurance Providers Payer Name Payer Address Payer Phone Insured Name Patient Relati onship to Insured Coverage Start Date Coverage End Date [facility] [address] [facility] [phone] MYRIAM NANCE
--- OUTSIDE RECORDS SUMMARY | 2020-10-27 07:11 | CCD | Continuity of Care Document ---
Author Author Luann LOPEZ Organization Unknown Address [address], [address], [place] [address] Phone [phone] Care Team Providers Care Ssn/Ssbn Weapons Equipment Operator Name Role Phone Nestor Pearl MD AUTM [phone] Problems Active Problems Provider Date Allergic rhinitis [...] 2 Or More Injection Colton Lopez M.D. 07/20/2020 Allergy Injection 2 Or More [...] Information Available Procedures Date Code Description Status 09/21/2020 22169 Allergy Injection 2 Or More Comp leted 09/14/2020 01247 Allergy Injection 2 Or More Comp leted 09/04/2020 70552 Allergy Injection 2 Or More Comp leted 08/25/2020 54779 Allergy Injection 2 Or More Comp leted 08/18/2020 74712 Allergy Injection 2 Or More Comp leted 08/10/2020 90783 Allergy Injection 2 Or More Comp leted 08/03/2020 46362 Allergy Injection 2 Or More Comp leted 07/27/2020 91256 Allergy Injection 2 Or More Comp leted 07/20/2020 92443 Allergy Injection 2 Or More Comp leted 07/13/2020 32849 Allergy Injection 2 Or More Comp leted 07/06/2020 70013 Allergy Injection 2 Or More Comp leted 06/30/2020 19236 Bronchodilation Resp onsiveness Spirometry Pre/Post Bronchodil Adm Completed 06/29/2020 07711 Allergy Injection 2 Or More Comp leted 06/22/2020 99584 Allergy Injection 2 Or More Comp leted 06/15/2020 47193 Allergy Injection 2 Or More Comp leted 06/09/2020 58124 Allergy Injection 2 Or More Comp leted 06/09/2020 44508 Allergy Injection 2 Or More Comp leted 06/02/2020 31223 Allergy Injection 2 Or More Comp leted 05/19/2020 95322 Allergy Injection 2 Or More Comp leted 05/12/2020 55100 Allergy Injection 2 Or More Comp leted 05/05/2020 97366 Allergy Injection 2 Or More Comp leted 04/27/2020 07609 Allergy Antigens Single Or Multi ple Completed Medical Devices Description No Information Available Encounters Type Date Location Provider Dx Diagnosis Office Visit 06/30/2020 10:00a Main Office Colton Lopez M.D. J30.1 Allergic rhinitis due to pollen J30.81 Allergic rhinitis due to ani mal (cat) (dog) hair and dander J30.89 Other allergic rhinitis J45.20 Mild intermittent asthma, un complicated Assessments Date Code Description Provider 09/21/2020 J30.1 Allergic rhinitis due to pollen Colton Lopez M.D. 09/21/2020 J30.81 Allergic rhinitis due to animal (cat) (dog) hair and dander Colton Lopez M.D. 09/21/2020 J30.89 Other allergic rhinitis Colton Lopez M.D. [...]
--- OUTSIDE RECORDS SUMMARY | 2020-10-27 07:11 | CCD | Continuity of Care Document ---
Author Author Luann LOPEZ Organization Unknown Address [address], [address], [place] [address] Phone [phone] Care Team Providers Care Helper Driver Name Role Phone Nestor Pearl MD AUTM [phone] Problems Active Problems Provider Date Allergic rhinitis [...] 05/05/2020 Allergy Injection 2 Or More Injection Coltno Lopez M.D. 12/09/2019 Allergy Injection 2 Or [...] Information Available Procedures Date Code Description Status 10/05/2020 71976 Allergy Injection 2 Or More Comp leted 09/27/2020 87829 Allergy Injection 2 Or More Comp leted 09/21/2020 68428 Allergy Injection 2 Or More Comp leted 09/14/2020 66556 Allergy Injection 2 Or More Comp leted 09/04/2020 48116 Allergy Injection 2 Or More Comp leted 08/25/2020 35196 Allergy Injection 2 Or More Comp leted 08/18/2020 82470 Allergy Injection 2 Or More Comp leted 08/10/2020 98920 Allergy Injection 2 Or More Comp leted 08/03/2020 50462 Allergy Injection 2 Or More Comp leted 07/27/2020 73846 Allergy Injection 2 Or More Comp leted 07/20/2020 19525 Allergy Injection 2 Or More Comp leted 07/13/2020 64079 Allergy Injection 2 Or More Comp leted 07/06/2020 70250 Allergy Injection 2 Or More Comp leted 06/30/2020 95859 Bronchodilation Resp onsiveness Spirometry Pre/Post Bronchodil Adm Completed 06/29/2020 43593 Allergy Injection 2 Or More Comp leted 06/22/2020 62555 Allergy Injection 2 Or More Comp leted 06/15/2020 79020 Allergy Injection 2 Or More Comp leted 06/09/2020 16580 Allergy Injection 2 Or More Comp leted 06/09/2020 38513 Allergy Injection 2 Or More Comp leted 06/02/2020 11545 Allergy Injection 2 Or More Comp leted 05/19/2020 55474 Allergy Injection 2 Or More Comp leted 05/12/2020 55032 Allergy Injection 2 Or More Comp leted 05/05/2020 41457 Allergy Injection 2 Or More Comp leted 04/27/2020 32018 Allergy Antigens Single Or Multi ple Completed Medical Devices Description No Information Available Encounters Type Date Location Provider Dx Diagnosis Office Visit 06/30/2020 10:00a Main Office Colton Lopez M.D. J30.1 Allergic rhinitis due to pollen J30.81 Allergic rhinitis due to ani mal (cat) (dog) hair and dander J30.89 Other allergic rhinitis J45.20 Mild intermittent asthma, un complicated Assessments Date Code Description Provider 10/05/2020 J30.1 Allergic rhinitis due to pollen Colton Lopez M.D. 10/05/2020 J30.81 Allergic rhinitis due to animal (cat) (dog) hair and dander Colton Lopez M.D. 10/05/2020 J30.89 Other allergic rhinitis Colton Lopez M.D. [...]
--- OUTSIDE RECORDS SUMMARY | 2020-10-27 07:11 | CCD | Continuity of Care Document ---
Author Author Luann LOPEZ Organization Unknown Address [address], [address], [place] [address] Phone [phone] Care Team Providers Care Compensation Intern Name Role Phone Nestor Pearl MD AUTM [phone] Problems Active Problems Provider Date Allergic rhinitis [...] Information Available Procedures Date Code Description Status 09/27/2020 98193 Allergy Injection 2 Or More Comp leted 09/21/2020 05377 Allergy Injection 2 Or More Comp leted 09/14/2020 63629 Allergy Injection 2 Or More Comp leted 09/04/2020 03915 Allergy Injection 2 Or More Comp leted 08/25/2020 39315 Allergy Injection 2 Or More Comp leted 08/18/2020 60729 Allergy Injection 2 Or More Comp leted 08/10/2020 62542 Allergy Injection 2 Or More Comp leted 08/03/2020 64176 Allergy Injection 2 Or More Comp leted 07/27/2020 66458 Allergy Injection 2 Or More Comp leted 07/20/2020 64708 Allergy Injection 2 Or More Comp leted 07/13/2020 57618 Allergy Injection 2 Or More Comp leted 07/06/2020 45957 Allergy Injection 2 Or More Comp leted 06/30/2020 88433 Bronchodilation Resp onsiveness Spirometry Pre/Post Bronchodil Adm Completed 06/29/2020 72817 Allergy Injection 2 Or More Comp leted 06/22/2020 48138 Allergy Injection 2 Or More Comp leted 06/15/2020 05526 Allergy Injection 2 Or More Comp leted 06/09/2020 67467 Allergy Injection 2 Or More Comp leted 06/09/2020 69169 Allergy Injection 2 Or More Comp leted 06/02/2020 54501 Allergy Injection 2 Or More Comp leted 05/19/2020 30428 Allergy Injection 2 Or More Comp leted 05/12/2020 28487 Allergy Injection 2 Or More Comp leted 05/05/2020 37853 Allergy Injection 2 Or More Comp leted 04/27/2020 31595 Allergy Antigens Single Or Multi ple Completed Medical Devices Description No Information Available Encounters Type Date Location Provider Dx Diagnosis Office Visit 06/30/2020 10:00a Main Office Colton Lopez M.D. J30.1 Allergic rhinitis due to pollen J30.81 Allergic rhinitis due to ani mal (cat) (dog) hair and dander J30.89 Other allergic rhinitis J45.20 Mild intermittent asthma, un complicated Assessments Date Code Description Provider 09/27/2020 J30.1 Allergic rhinitis due to pollen Colton Lopez M.D. 09/27/2020 J30.81 Allergic rhinitis due to animal (cat) (dog) hair and dander Colton Lopez M.D. 09/27/2020 J30.89 Other allergic rhinitis Colton Lopez M.D. [...]
--- OUTSIDE RECORDS SUMMARY | 2020-10-27 07:11 | CCD ---
Author Author [facility] [employer] Organization [facility] [employer] Address Unknown Phone Unavailable Care Team Providers Care Phonograph Needle Tip Maker Name Role Phone Jessica Powers Unavailable PROBLEMS Type Condition ICD9-CM Code [id number] Code Onset Dates Condition S tatus W/U Status Risk SNOMED Code Notes Problem Asthma J45.909 Active confirmed [id number] Th is is managed by her hard metals engraver hand with immunotherapy and allergy shots, Singulair and Zyrtec, and there is no active flare. She has a rescue inhaler to use as needed. She does not appear to need a controller inhaler. Problem Vitamin D deficiency E55.9 Active confirmed 56170392 She has a history of a low vitamin D level of 7 in March 2016. She is on 2000 units a day and her most recent level was 17 in February 2018. Remains on supplementation, 4000 units daily and a repeat vitamin D level was 27 in May 2020. Problem Colonoscopy refused Z53.20 Active confirmed [id number] She was referred in 2016 but did not keep the appointment. We will continue to try to encourage her to pursue testing. Problem Acquired absence of both cervix and uterus Z90.710 Active confirmed [id number] Problem Hyperlipidemia E78.5 Active confirmed 40419 004 She has a history of fairly profound hyperlipidemia and atorvastatin was started in May 2020. 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 Active conf irmed [id number] Problem Episodic tension-type headache, not intractable G4 4.219 Active confirmed [id number] ALLERGIES Allergen (clinical drug ingredient) Drug/Non Drug Allergy do cumented on EMR Reaction Allergy Type Onset Date Status albuterol Albuterol Hives Drug Allergy Active Penicillin (For Allergies Use Only) Hives Drug Allerg y Active ENCOUNTERS from 1966 to 2020-10-19 Encounter Location Date Provider Diagnosis [facility] [address] [place] [address] Oct, Jessica Powers Encounter for gyneco logical examination without abnormal finding Z01.419 ; Other screening breast examination Z12.39 ; Encounter for screening mammogram for malignant neoplasm of breast Z12.31 and Ac quired absence of both cervix and uterus Z90.710 IMMUNIZATIONS Vaccine Route Administration Date Status Influenza (6mo & up) Fluzone Unknown Jun 14, 2017 Ref used SOCIAL HISTORY Tobacco Use: Social History Observation Description Date Details (start date - stop date) Never Smoker Sex Assigned At : Social History Observation Description Sex Assigned At Unknown Audit Question Answer Notes Interpretation: Alcohol Education Total Score: 0 Mandaeism: Question Answer Notes Mandaeism 08 Adventist Sexual Hx: Question Answer Notes Had sex in the last 12 months (vaginal, oral, or anal)? Yes Have you ever had an STD? No with Men only Drug and Alcohol Question Answer Notes Interpretation: No problems reported Total Score: 0 Alcohol Screening: Question Answer Notes Did you have a drink containing alcohol in the past year? No Points 0 Interpretation Negative BMI Care Goal Follow-Up Question Answer Notes Above Normal BMI Follow-Up Lifestyle education regarding t Tobacco Use: Question Answer Notes Are you a: never smoker never smoker REASON FOR REFERRAL No Information VITAL SIGNS Weight 167 lbs Oct, Weight-kg 75.75 kg Oct, Height 64 in Oct, BMI 28.66 kg/m2 Oct, Blood pressure systolic 114 mm Hg Oct, Blood pressure diastolic 72 mm Hg Oct, MEDICATIONS Medication SIG (Take, Route, Frequency, Duration) Notes Start Da te End Date Status Lipitor 20 MG 1 tablet Orally Once a day Active Xopenex HFA 45 MCG/ACT 2 puff as needed Inhalation every 4 hrs Active Singulair 10 MG 1 tab Orally Daily A ctive May Have ___ allergy injections weekly _ every 1 weeks Active Tamsulosin HCl 0.4 MG 1 capsule Orally Once a day for 10 days Sep, Not-Taking Vitamin D 125 MCG (5000 UT) 1 tablet Orally Once a day Apr, Active Zyrtec Allergy 10 MG 1 tablet Orally Once a day Active PROCEDURES No Information RESULTS No Results REASON FOR VISIT ANNUAL/Mammo MEDICAL (GENERAL) HISTORY Type Description Date Medical [...] Notes Treatment Notes Treatm ent Clinical Notes Oct, Encounter for gynecological examination without abnormal finding (ICD-10 - Z01.419) Oct, Other screening breast examination (ICD-10 - Z12 .39) Oct, Encounter for screening mamm ogram for malignant neoplasm of breast (ICD-10 - Z12.31) Oct, Acquired absence of both cervix and uterus (ICD- 10 - Z90.710) PLAN OF TREATMENT Treatment Notes Test Name Order Date [facility] John Screening Bilateral (Ultrasound if Indicated ) (3D Mammo) 2020-10-17 Next Appt Details 1 Year Reason:annual and mammo Provider Name:Gerhard Gongora, 2020-11-08 09:45:00 AM, [address], [place], [address], Provider Name:Nestor Pearl, 2021-05-16 08 :30:00 AM, [address] [place], [address], Follow Up:1 Yearannual and mammo Insurance Providers Payer Name Payer Address Payer Phone Insured Name Patient Relati onship to Insured Coverage Start Date Coverage End Date [facility] [address] [facility] [address] MYRIAM NANCE
--- OUTSIDE RECORDS SUMMARY | 2020-10-27 07:11 | CCD ---
Author Author [facility] Organization [facility] [employer] [facility] Address Unknown Phone Unavailable Care Team Providers Care Armhole Baster Hand Name Role Phone Nestor Pearl Unavailable PROBLEMS Type Condition ICD9-CM Code [id number] Code Onset Dates Condition S tatus W/U Status Risk SNOMED Code Notes Problem Asthma J45.909 Active confirmed [id number] Th is is managed by her audograph operator with immunotherapy and allergy shots, Singulair and Zyrtec, and there is no active flare. She has a rescue inhaler to use as needed. She does not appear to need a controller inhaler. Problem Episodic tension-type headache, not intractable G4 4.219 Active confirmed [id number] Problem Colonoscopy refused Z53.20 Active confirmed [id number] She was referred in 2016 but did not keep the appointment. We will continue to try to encourage her to pursue testing. Problem Vitamin D deficiency E55.9 Active confirmed 42893019 She has a history of a low vitamin D level of 7 in March 2016. She is on 2000 units a day and her most recent level was 17 in February 2018. Remains on supplementation, 4000 units daily and a repeat vitamin D level was 27 in May 2020. Problem Hyperlipidemia E78.5 Active confirmed 76043 004 She has a history of fairly profound hyperlipidemia and atorvastatin was started in May 2020. 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 Active conf irmed [id number] Problem Vaginal relaxation N81.89 Active confirmed 1 2168465 ALLERGIES Allergen (clinical drug ingredient) Drug/Non Drug Allergy do cumented on EMR Reaction Allergy Type Onset Date Status albuterol Albuterol Hives Drug Allergy Active Penicillin (For Allergies Use Only) Hives Drug Allerg y Active ENCOUNTERS from 1966 to 2020-10-12 Encounter Location Date Provider Diagnosis [facility] [address] [place] [address] Sep, Nestor Pearl Right flank pain R10.9 IMMUNIZATIONS Vaccine Route Administration Date Status Influenza (6mo & up) Fluzone Unknown Jun 14, 2017 Ref used SOCIAL HISTORY Tobacco Use: Social History Observation Description Date Details (start date - stop date) Never Smoker Sex Assigned At : Social History Observation Description Sex Assigned At Unknown Audit Question Answer Notes Interpretation: Alcohol Education Total Score: 0 Yazdanism: Question Answer Notes Yazdanism 08 Jain Sexual Hx: Question Answer Notes Had sex [...] FOR REFERRAL No Information VITAL SIGNS Weight 167.4 lbs Sep, Height 64 in Sep, BMI 28.73 kg/m2 Sep, Heart Rate 91 /min Sep, Respiratory Rate 18 /min Sep, Temperature 97.8 degrees Fahrenheit Sep, Oximetry 99% Sep, Blood pressure systolic 136 mm Hg Sep, Blood pressure diastolic 72 mm Hg Sep, MEDICATIONS Medication SIG (Take, Route, Frequency, Duration) Notes Start Da te End Date Status Xopenex HFA 45 MCG/ACT 2 puff as needed Inhalation every 4 hrs Active Zyrtec Allergy 10 MG 1 tablet Orally Once a day Active Vitamin D 125 MCG (5000 UT) 1 tablet Orally Once a day Apr, Active May Have ___ allergy injections weekly _ every 1 weeks Active Tamsulosin HCl 0.4 MG 1 capsule Orally Once a day for 10 days Sep, Active Singulair 10 MG 1 tab Orally Daily A ctive PROCEDURES No Information RESULTS Component Value Reference Range CBC with Differential Reviewed date:10/04/2020 13:58:50 Interpretation: Performing Lab:[facility], [facility] [address] [address] , ,[place] [address] WHITE BLOOD COUNT 5.3 4.0-10.0 RED BLOOD COUNT 5.26 4.00-5.40 HEMOGLOBIN 14.8 12.0-15.5 HEMATOCRIT 44.7 36.0-47.0 MEAN CORPUSCULAR VOLUME 85.0 80.0-96.0 MEAN CORPUSCULAR HEMOGLOBIN 28.1 27.0-33.0 MEAN CORPUSCULAR HGB CONC 33.1 32.0-36.5 RED CELL DISTRIBUTION WIDTH 12.7 11.5-14.5 PLATELET COUNT, AUTOMATED 272 150-450 NEUTROPHILS % 63.8 36.0-66.0 LYMPH % 20.7 24.0-44.0 MONO % 10.5 0.0-5.0 EOS % 3.6 0.0-3.0 BASO % 0.8 0.0-1.0 NEUTROPHILS # 3.4 1.5-8.5 LYMPH # 1.1 1.5-5.0 MONO # 0.6 0.0-0.8 EOS # 0.2 0.0-0.5 BASO # 0.0 0.0-0.2 Basic Metabolic Profile (BMP) Reviewed date:10/04/2020 13:59:00 Interpretation: Performing Lab:[facility] [address] [place] [address] , ,[facility] GLUCOSE, FASTING 88 70-100 BLOOD UREA NITROGEN 14 7-18 CREATININE FOR GFR 0.69 0.55-1.30 GLOMERULAR FILTRATION RATE > 60.0 >51 SODIUM LEVEL 140 136-145 POTASSIUM SERUM 4.8 3.5-5.1 CHLORIDE LEVEL 104 98-107 CARBON DIOXIDE LEVEL 32 21-32 CALCIUM LEVEL 9.6 8.5-10.1 UA URINALYSIS Reviewed date:10/04/2020 13:59:08 Interpretation: Performing Lab:[facility] [address] [place] [address] , ,[place] [address] Ultrasound : Kidneys and Bladder Reviewed date:10/05/2020 13:12:17 Interpretation:October 04, 2020 Performing Lab:[facility] [place], [place] [address] REASON FOR VISIT abdominal pain, back pain MEDICAL (GENERAL) HISTORY Type Description Date Medical [...] Treatment Notes Treatm ent Clinical Notes Sep, Right flank pain (ICD-10 - R10.9) Differential diagnosis includes ureterolithiasis on the right versus acute appendicitis. Her clinical presentation is not typical for appendicitis. I will get an ultrasound of her kidneys and bladder to start with. We will start Flomax for a few days, as this may help pass a kidney stone is present. She is to strain her urine. If her ultrasound is not revealing, and her pain persists, CT abdomen be the next logical choice. CBC, BMP and a urinalysis are ordered. Add: On 10/05/2020 labs and ultrasound are reviewed and there is no evidence of a kidney stone. I have ordered a pre- and post-contrast CT of the abdomen. PLAN OF TREATMENT Medication Medication Name Sig Start Date Stop Date Tamsulosin HCl 0.4 MG 1 capsule Orally Once a day for 10 days Sep, Treatment Notes Test Name Order Date CT Abdomen without Contrast 2020-10-04 CT Abdomen with Contrast 2020-10-04 Next Appt Details Keep scheduled. Reason: Provider Name:Jessica Powers, 2020-10-17 11:00:00 AM, [address] [place], [address], Provider Name:Nestor Pearl, 2021-05-16 08 :30:00 AM, [address] [place], [address], Insurance Providers Payer Name Payer Address Payer Phone Insured Name Patient Relati onship to Insured Coverage Start Date Coverage End Date [facility] [address] [facility] [phone] MYRIAM NANCE
--- OUTSIDE RECORDS SUMMARY | 2020-10-27 07:11 | CCD | Continuity of Care Document ---
Author Author [facility]ann [facility] Organization Unknown Address [address], [address] [place] [address] Phone [phone] Care Team Providers Care Mechanical Development Engineer Name Role Phone Nestor Pearl M.D. 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 Unilateral conductive hearing loss Jossue Shahid MD Onset : 11/09/2015 Tinnitus, right ear Jossue Shahid MD Onset: 01/19/2016 Mixed conductive and sensorineural hearing loss, bilateral T lanette Shahid MD Onset: 01/19/2016 Social History Type Date Description Comments Sex Unknown ETOH Use Denies alcohol use Tobacco Use Start: Unknown Non Smoker Recreational Drug Use Denies Drug Use Allergies, Adverse Reactions, Alerts Active Allergies Reaction Severity Comments Date Penicillin 08/16/2009 Albuterol 08/16/2009 Medications Active Medications SIG Qnty Indications Ordering Provide r Date Suprep Bowel Prep Kit 17.5-3.13-1.6GM/177ML Solution take per doctor's bowel prep instructions. 354ml Z12.1 1 Arthur Davila MD 09/15/[address] take 4 tabs by mouth prior to procedure per instructions. 4tabs Z12.11 Arthur Davila MD 09/15/2020 Singulair 10mg Tablets Daily Unknown Allergy Shots weekly Unknown Vitamin D 125mcg (5000 Ut) Capsules Daily Unknown Zyrtec Allergy 10mg Tablets 1 by mouth every day Unknown Lipitor 20mg Tablets Daily Unknown Immunizations Description No Information Available Vital Signs Date Vital Result Comment 09/15/2020 9:09am BP Systolic 118 mmHg BP Diastolic 70 mmHg Height 64 inches 5'4" Weight 165.00 lb BMI (Body Mass Index) 28.3 kg/m2 Falkner Body Weight 120 lb Weight 74.844 kg BSA (Body Surface Area) 1.80 m2 01/19/2016 8:55am Height 64 inches 5'4" Weight 163.00 lb BMI (Body Mass Index) 28.0 kg/m2 Falkner Body Weight 120 lb Weight 73.937 kg BSA (Body Surface Area) 1.79 m2 Results Description No Information Available Procedures Description No Information Available Medical Devices Description No Information Available Encounters Description No Information Available Assessments Date Code Description Provider 09/15/2020 Z12.11 Encounter for screening for jordon gnant neoplasm of colon PO Gee Plan of Treatment 09/15/2020 - PO Gee* Z12.11 Encounter for screening for malignant neoplasm of colon * * New Medication:* Suprep Bowel Prep Kit 17.5-3.13-1.6 GM/177ML * Dulcolax 5 mg * New Orders:* Colonoscopy, Ordered: 09/15/20 * Comments:* Will arrange for colonoscopy. Reviewed risks and benefits of the procedure, as well as other options, with the patient. Bowel prep procedure was discussed with patient, as well as risks and side effects associated with the bowel prep. Patient verbalized understanding of all of the above and is in agreement to proceed. Patient will seek medical attention for any acute changes. Will monitor. * Follow up:* As scheduled, sooner if needed. Functional Status Description No Information Available Mental Status Description No Information Available Referrals Description No Information Available
--- OUTSIDE RECORDS SUMMARY | 2020-10-27 07:12 | CCD | Continuity of Care Document ---
Author Author Luann [facility]OPE[facility] Organization Unknown Address [address], [place] [address] Phone [phone] Care Team Providers Care Video Recorder Mechanic Name Role Phone Nestor Pearl MD [facility] [phone] Problems Active Problems Provider Date Allergic rhinitis [...] Information Available Procedures Date Code Description Status 09/14/2020 73223 Allergy Injection 2 Or More Comp leted 09/04/2020 53884 Allergy Injection 2 Or More Comp leted 08/25/2020 06173 Allergy Injection 2 Or More Comp leted 08/18/2020 70557 Allergy Injection 2 Or More Comp leted 08/10/2020 14027 Allergy Injection 2 Or More Comp leted 08/03/2020 58743 Allergy Injection 2 Or More Comp leted 07/27/2020 60822 Allergy Injection 2 Or More Comp leted 07/20/2020 58901 Allergy Injection 2 Or More Comp leted 07/13/2020 83029 Allergy Injection 2 Or More Comp leted 07/06/2020 08370 Allergy Injection 2 Or More Comp leted 06/30/2020 72302 Bronchodilation Resp onsiveness Spirometry Pre/Post Bronchodil Adm Completed 06/29/2020 03103 Allergy Injection 2 Or More Comp leted 06/22/2020 01559 Allergy Injection 2 Or More Comp leted 06/15/2020 89478 Allergy Injection 2 Or More Comp leted 06/09/2020 27210 Allergy Injection 2 Or More Comp leted 06/09/2020 02657 Allergy Injection 2 Or More Comp leted 06/02/2020 38381 Allergy Injection 2 Or More Comp leted 05/19/2020 58460 Allergy Injection 2 Or More Comp leted 05/12/2020 66846 Allergy Injection 2 Or More Comp leted 05/05/2020 15067 Allergy Injection 2 Or More Comp leted 04/27/2020 83044 Allergy Antigens Single Or Multi ple Completed Medical Devices Description No Information Available Encounters Type Date Location Provider Dx Diagnosis Office Visit 06/30/2020 10:00a Main Office Colton Lopez M.D. J30.1 Allergic rhinitis due to pollen J30.81 Allergic rhinitis due to ani mal (cat) (dog) hair and dander J30.89 Other allergic rhinitis J45.20 Mild intermittent asthma, un complicated Assessments Date Code Description Provider 09/14/2020 J30.1 Allergic rhinitis due to pollen Colton Lopez M.D. 09/14/2020 J30.81 Allergic rhinitis due to animal (cat) (dog) hair and dander Colton Lopez M.D. 09/14/2020 J30.89 Other allergic rhinitis Colton oLpez M.D. Plan of Treatment Future Appointment(s):* 06/29/2021 [...]
--- OUTSIDE RECORDS SUMMARY | 2020-10-27 07:12 | CCD | Continuity of Care Document ---
Author Author Luann LOPEZ Organization Unknown Address [address], [place] [address] Phone [phone] Care Team Providers Care Boat Operator Name Role Phone Nestor Pearl MD [facility] [phone] Problems Active Problems Provider Date Allergic rhinitis [...] Information Available Procedures Date Code Description Status 08/03/2020 53428 Allergy Injection 2 Or More Comp leted 07/27/2020 56431 Allergy Injection 2 Or More Comp leted 07/20/2020 61294 Allergy Injection 2 Or More Comp leted 07/13/2020 51209 Allergy Injection 2 Or More Comp leted 07/06/2020 25350 Allergy Injection 2 Or More Comp leted 06/30/2020 72710 Bronchodilation Resp onsiveness Spirometry Pre/Post Bronchodil Adm Completed 06/29/2020 83258 Allergy Injection 2 Or More Comp leted 06/22/2020 47474 Allergy Injection 2 Or More Comp leted 06/15/2020 16116 Allergy Injection 2 Or More Comp leted 06/09/2020 58748 Allergy Injection 2 Or More Comp leted 06/09/2020 42406 Allergy Injection 2 Or More Comp leted 06/02/2020 08164 Allergy Injection 2 Or More Comp leted 05/19/2020 59513 Allergy Injection 2 Or More Comp leted 05/12/2020 64240 Allergy Injection 2 Or More Comp leted 05/05/2020 02466 Allergy Injection 2 Or More Comp leted 04/27/2020 72993 Allergy Antigens Single Or Multi ple Completed Medical Devices Description No Information Available Encounters Type Date Location Provider Dx Diagnosis Office Visit 06/30/2020 10:00a Main Office Colton Lopez M.D. J30.1 Allergic rhinitis due to pollen J30.81 Allergic rhinitis due to ani mal (cat) (dog) hair and dander J30.89 Other allergic rhinitis J45.20 Mild intermittent asthma, un complicated Assessments Date Code Description Provider 08/03/2020 J30.1 Allergic rhinitis due to pollen Colton Lopez M.D. 08/03/2020 J30.81 Allergic rhinitis due to animal (cat) (dog) hair and dander Colton Lopez M.D. 08/03/2020 J30.89 Other allergic rhinitis Colton Lopez M.D. [...]
--- OUTSIDE RECORDS SUMMARY | 2020-10-27 07:12 | CCD | Continuity of Care Document ---
Author Author Luann LOPEZ Organization Unknown Address [address], [place] [address] Phone [phone] Care Team Providers Care Snow Maker Name Role Phone Nestor Pearl MD [facility] [phone] Problems Active Problems Provider Date Allergic rhinitis [...] Allergy Injection 2 Or More Injection Colton oLpez M.D. 06/29/2020 Allergy Injection 2 Or More [...] Information Available Procedures Date Code Description Status 09/04/2020 79561 Allergy Injection 2 Or More Comp leted 08/25/2020 95423 Allergy Injection 2 Or More Comp leted 08/18/2020 82316 Allergy Injection 2 Or More Comp leted 08/10/2020 26059 Allergy Injection 2 Or More Comp leted 08/03/2020 48038 Allergy Injection 2 Or More Comp leted 07/27/2020 16090 Allergy Injection 2 Or More Comp leted 07/20/2020 11353 Allergy Injection 2 Or More Comp leted 07/13/2020 65143 Allergy Injection 2 Or More Comp leted 07/06/2020 62690 Allergy Injection 2 Or More Comp leted 06/30/2020 16670 Bronchodilation Resp onsiveness Spirometry Pre/Post Bronchodil Adm Completed 06/29/2020 42099 Allergy Injection 2 Or More Comp leted 06/22/2020 78773 Allergy Injection 2 Or More Comp leted 06/15/2020 63709 Allergy Injection 2 Or More Comp leted 06/09/2020 68435 Allergy Injection 2 Or More Comp leted 06/09/2020 47204 Allergy Injection 2 Or More Comp leted 06/02/2020 77701 Allergy Injection 2 Or More Comp leted 05/19/2020 66930 Allergy Injection 2 Or More Comp leted 05/12/2020 92366 Allergy Injection 2 Or More Comp leted 05/05/2020 16447 Allergy Injection 2 Or More Comp leted 04/27/2020 03471 Allergy Antigens Single Or Multi ple Completed Medical Devices Description No Information Available Encounters Type Date Location Provider Dx Diagnosis Office Visit 06/30/2020 10:00a Main Office Colton Lopez M.D. J30.1 Allergic rhinitis due to pollen J30.81 Allergic rhinitis due to ani mal (cat) (dog) hair and dander J30.89 Other allergic rhinitis J45.20 Mild intermittent asthma, un complicated Assessments Date Code Description Provider 09/04/2020 J30.1 Allergic rhinitis due to pollen Colton Lopez M.D. 09/04/2020 J30.81 Allergic rhinitis due to animal (cat) (dog) hair and dander Colton Lopez M.D. 09/04/2020 J30.89 Other allergic rhinitis Colton Lopez M.D. [...]
--- OUTSIDE RECORDS SUMMARY | 2020-10-27 07:12 | CCD ---
Author Author [facility] Organization [facility] Address Unknown Phone Unavailable Care Team Providers Care Center Lead Consultant Name Role Phone KEVIN LOPEZ MD Unavailable Unavailable KEVIN LOPEZ MD Unavailable Unavailable KEVIN LOPEZ MD Unavailable Unavailable KEVIN LOPZE MD Unavailable Unavailable KEVIN LOPEZ MD Unavailable Unavailable KEVIN LOPEZ MD Unavailable Unavailable KEVIN LOPEZ MD Unavailable Unavailable KEVIN LOPEZ MD Unavailable Unavailable KEVIN LOPEZ MD Unavailable Unavailable KEVIN LOPEZ MD Unavailable Unavailable KEVIN LOPEZ MD Unavailable Unavailable KEVIN LOPEZ MD Unavailable Unavailable KEVIN LOPEZ MD Unavailable Unavailable KEVIN LOPEZ MD Unavailable Unavailable KEVIN LOPEZ MD Unavailable Unavailable KEVIN LOPEZ MD Unavailable Unavailable KEVIN LOPEZ MD Unavailable Unavailable KEVIN LOPEZ MD Unavailable Unavailable KEVIN LOPEZ MD Unavailable Unavailable KEVIN LOPEZ MD Unavailable Unavailable KEVIN LOPEZ MD Unavailable Unavailable CHROSTOWSKI, KEVIN MD Unavailable Unavailable CHROSTOWSKI, KEVIN MD Unavailable Unavailable CHROSTOWSKI, KEVIN MD Unavailable Unavailable CHROSTOWSKI, KEVIN MD Unavailable Unavailable CHROSTOWSKI, KEVIN MD Unavailable Unavailable CHROSTOWSKI, KEVIN MD Unavailable Unavailable CHROSTOWSKI, KEVIN MD Unavailable Unavailable CHROSTOWSKI, KEVIN MD Unavailable Unavailable CHROSTOWSKI, KEVIN MD Unavailable Unavailable CHROSTOWSKI, KEVIN MD Unavailable Unavailable CHROSTOWSKI, KEVIN MD Unavailable Unavailable CHROSTOWSKI, KEVIN MD Unavailable Unavailable CHROSTOWSKI, KEVIN MD Unavailable Unavailable CHROSTOWSKI, KEVIN MD Unavailable Unavailable CHROSTOWSKI, KEVIN MD Unavailable Unavailable CHROSTOWSKI, KEVIN MD Unavailable Unavailable CHROSTOWSKI, KEVIN MD Unavailable Unavailable CHROSTOWSKI, KEVIN MD Unavailable Unavailable CHROSTOWSKI, KEVIN MD Unavailable Unavailable Re-disclosure Warning The records that you are about to access may contain information from federally-assisted alcohol or drug abuse programs. If such information is present, then the following federally mandated warning applies: This information has been disclosed to you from records protected by federal confidentiality rules (42 CFR part 2). The federal rules prohibit you from making any further disclosure of this information unless further disclosure is expressly permitted by the written consent of the person to whom it pertains or as otherwise permitted by 42 CFR part 2. A general authorization for the release of medical or other information is NOT sufficient for this purpose. The Federal rules restrict any use of the information to criminally investigate or prosecute any alcohol or drug abuse patient.The records that you are about to access may contain highly sensitive health information, the redisclosure of which is protected by Article 27-F of the [facility] Public Health law. If you continue you may have access to information: Regarding HIV / AIDS; Provided by facilities licensed or operated by the [facility] Office of Mental Health; or Provided by the [facility] Office for People With Developmental Disabilities. If such information is present, then the following [facility] mandated warning applies: This information has been disclosed to you from confidential records which are protected by state law. State law prohibits you from making any further disclosure of this information without the specific written consent of the person to whom it pertains, or as otherwise permitted by law. Any unauthorized further disclosure in violation of state law may result in a fine or long-term sentence or both. A general authorization for the release of medical or other information is NOT sufficient authorization for further disc losure. Allergies and Adverse Reactions Type Description Substance Reaction Status Data Source(s ) Drug allergy Penicillin (For Allergies Use Only) Drug allergy Hives Active eCW1 (On License Of [facility]) Albuterol Albuterol Albuterol 1 MG/ML Inhalant Solution Hives Active eCW1 (On License Of [facility]) Family History Family Member Name Family Member Gender Family Member Status Date o f Status Description Data Source(s) Unknown Female Problem MEDENT ([facility] Unknown Unknown Problem MEDENT ([facility], ) Unknown Unknown Problem MEDENT ([facility]) Unknown Unknown Problem MEDENT ([facility]) Unknown Unknown Problem MEDENT ([facility]) Encounters Encounter Providers Location Date Indications Data Source(s ) Outpatient [address] [facility] [id number] 10/17/2020 12:00:00 AM EST eCW1 ([facility]) Outpatient [address] [facility] [id number] 10/04/2020 12:00:00 AM EST eCW1 ([facility]) Unknown [address] [facility] [id number] 10/03/2020 12:00:00 AM EST eCW1 ([facility]) Unknown [address] [facility] [place] [address] 09/28/2020 12:00:00 AM EST eCW1 ([facility]) Outpatient Attender: KEVIN LOPEZ MD Main Office 06/30/2020 10:00:00 AM EDT MEDENT ([facility] [place] [address] [facility] [place] [address] 05/17/2020 12:00:00 AM EDT eCW1 ([facility]) Outpatient 10/21/2019 02:05:00 PM EST [facility] [address] [address] 10/13/2019 12:00:00 AM EST eCW1 ([facility]) Medications Medication Brand Name Start Date Product Form Dose Route Admi nistrative Instructions Pharmacy Instructions Status Indications Reaction Description Data Source(s) Allergy Injection 2 Or More 10/18/2020 12:00:00 AM EST completed MEDENT ([facility]) Medication administered onsite Allergy Injection 2 Or More 10/05/2020 12:00:00 AM EST completed MEDENT ([facility]) Medication administered onsite Tamsulosin hydrochloride 0.4 MG Oral Capsule Tamsulosi n HCl 0.4 MG Tamsulosin HCl 0.4 MG 10/04/2020 12:00:00 AM EST 1.0 {capsule} suspended Tamsulosin HCl 0.4 MG eCW1 (On [facility]) Tamsulosin hydrochloride 0.4 MG Oral Capsule Tamsulosi n HCl 0.4 MG Tamsulosin HCl 0.4 MG 10/04/2020 12:00:00 AM EST 1.0 {capsule} active Tamsulosin HCl 0.4 MG eCW1 (On [facility]) Allergy Injection 2 Or More 09/27/2020 12:00:00 AM EST completed MEDENT ([facility]) Medication administered onsite Allergy Injection 2 Or More 09/21/2020 12:00:00 AM EST completed MEDENT ([facility]) Medication administered onsite Bisacodyl 5 MG Delayed Release Oral Tablet [Dulcolax] Dulcol ax 09/15/2020 12:00:00 AM EST ORAL active M EDENT ([facility], ) Suprep Bowel Prep Kit Suprep Bowel Prep Kit 09/15/2020 12:00:00 AM EST active MEDENT ([facility], ) Allergy Injection 2 Or More 09/14/2020 12:00:00 AM EST completed MEDENT ([facility]) Medication administered onsite Allergy Injection 2 Or More 09/04/2020 12:00:00 AM EST completed MEDENT ([facility]) Medication administered onsite Allergy Injection 2 Or More 08/25/2020 12:00:00 AM EST completed MEDENT ([facility]) Medication administered onsite Allergy Injection 2 Or More 08/18/2020 12:00:00 AM EST completed MEDENT ([facility]) Medication administered onsite Allergy Injection 2 Or More 08/10/2020 12:00:00 AM EST completed MEDENT ([facility]) Medication administered onsite Allergy Injection 2 Or More 08/03/2020 12:00:00 AM EST completed MEDENT ([facility]) Medication administered onsite Allergy Injection 2 Or More 07/27/2020 12:00:00 AM EST completed MEDENT ([facility]) Medication administered onsite Allergy Injection 2 Or More 07/20/2020 12:00:00 AM EST completed MEDENT ([facility]) Medication administered onsite Allergy Injection 2 Or More 07/13/2020 12:00:00 AM EST completed MEDENT ([facility]) Medication administered onsite Allergy Injection 2 Or More 07/06/2020 12:00:00 AM EDT completed MEDENT ([facility]) Medication administered onsite Allergy Injection 2 Or More 06/29/2020 12:00:00 AM EDT completed MEDENT ([facility]) Medication administered onsite Allergy Injection 2 Or More 06/22/2020 12:00:00 AM EDT completed MEDENT ([facility]) Medication administered onsite Allergy Injection 2 Or More 06/15/2020 12:00:00 AM EDT completed MEDENT ([facility]) Medication administered onsite Allergy Injection 2 Or More 06/09/2020 12:00:00 AM EDT completed MEDENT ([facility]) Medication administered onsite Allergy Injection 2 Or More 06/09/2020 12:00:00 AM EDT completed MEDENT ([facility]) Medication administered onsite Allergy Injection 2 Or More 06/02/2020 12:00:00 AM EDT completed MEDENT ([facility]) Medication administered onsite Allergy Injection 2 Or More 05/19/2020 12:00:00 AM EDT completed MEDENT ([facility]) Medication administered onsite Allergy Injection 2 Or More 05/12/2020 12:00:00 AM EDT completed MEDENT ([facility]) Medication administered onsite Allergy Injection 2 Or More 05/05/2020 12:00:00 AM EDT completed MEDENT ([facility]) Medication administered onsite Allergy Injection 2 Or More 12/09/2019 12:00:00 AM EDT completed MEDENT ([facility]) Medication administered onsite Allergy Injection 2 Or More 11/26/2019 12:00:00 AM EDT completed MEDENT ([facility]) Medication administered onsite Allergy Injection 2 Or More 10/06/2019 12:00:00 AM EST completed MEDENT ([facility]) Medication administered onsite Allergy Injection 2 Or More 09/15/2019 12:00:00 AM EST completed MED[facility] ([facility]) Medication administered onsite Allergy Injection 2 Or More 09/01/2019 12:00:00 AM EST completed MEDENT ([facility]) Medication administered onsite Insurance Providers Payer name Policy type / Coverage type Policy ID Covered constitution party ID Covered constitution party's relationship to mclaughlin Policy M[place] Plan Information [employer] [id number] SP A [id number] [employer] [id number] SP [id number] [employer] O [id number] S A [id number] [employer] [id number] SP [id number] ANSI-Commercial [id number] [employer] [id number] SP [id number] Cigna Insurance Commercial [id number] Self [id number] [facility] Health Plan [id number] Commer[employer] l Insurance Co. [id number] [facility] Health Plan [id number] Commer[employer] l Insurance Co. [id number] COMMERCIAL GENERIC [id number] Spo A [id number] COMMERCIAL GENERIC PI P I COMMERCIAL GENERIC [id number] Spo [id number] [employer] [id number] SP [id number] CIGNA/MVP/CONN GEN/PREFE O [id number] O [id number] [employer] [id number] SP [id number] [employer] [id number] SP [id number] SP [id number] Cigna Healthcare Commercial Family Dependent CIGNA INSURANCE CO [id number] SP [id number] CIGNA HEALTH PLAN HEA [id number] SP [id number] Cigna/Conn Gen/MVP Commercial Family Dependent CIGNA INSURANCE [place] [id number] SP [id number] [employer] [id number] SP [id number] Problems, Conditions, and Diagnoses Code Display Name Description Problem Type Effective Dates Data Source(s) Z90.710 [id number] 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 Problem 10/17/2020 12:00:00 AM EST eCW1 (On [facility]) Surgeries/Procedures Procedure Description Date Indications Data Source(s) PROF MALDONADO SALINAS IMMNTX X W/PRV ALLGIC XTRCS NJXS 2020 12:00:00 AM EST MEDENT ([facility]) PROF OKEEFE ALLG IMMNTX X W/PRV ALLGIC XTRCS NJXS 2020 12:00:00 AM EST MEDENT ([facility]) PROF OKEEFE ALLG IMMNTX X W/PRV ALLGIC XTRCS NJXS 2020 12:00:00 AM EST MEDENT ([facility]) PROF [place]EE[place] ALLG IMMNTX X W/PRV ALLGIC XTRCS NJXS 2020 12:00:00 AM EST MEDENT ([facility]) PROF [place]EE[place] ALLG IMMNTX X W/PRV ALLGIC XTRCS NJXS 2020 12:00:00 AM EST MEDENT ([facility]) PROF SVCS ALLG IMMNTX X W/PRV ALLGIC XTRCS NJXS 2019 12:00:00 AM EST MEDENT ([facility]) PROF [facility] ALLG IMMNTX X W/PRV ALLGIC XTRCS NJXS 2019 12:00:00 AM EST MEDENT ([facility]) [facility] ALLG IMMNTX X W/PRV ALLGIC XTRCS NJXS 2019 12:00:00 AM EST MEDENT ([facility]) [facility] ALLG IMMNTX X W/PRV ALLGIC XTRCS NJXS 2019 12:00:00 AM EST MEDENT ([facility]) PROF [facility] ALLG IMMNTX X W/PRV ALLGIC XTRCS NJXS 2019 12:00:00 AM EST MEDENT ([facility]) PROF [facility] ALLG IMMNTX X W/PRV ALLGIC XTRCS NJXS 2019 12:00:00 AM EST MEDENT ([facility]) [facility] ALLG IMMNTX X W/PRV ALLGIC XTRCS NJXS 2019 12:00:00 AM EST MEDENT ([facility]) PROF [facility] ALLG IMMNTX X W/PRV ALLGIC XTRCS NJXS 2019 12:00:00 AM EST MEDENT ([facility]) PROF [facility] ALLG IMMNTX X W/PRV ALLGIC XTRCS NJXS 2019 12:00:00 AM EDT MEDENT ([facility]) BRNCDILAT RSPSE SPMTRY PRE&POST-BRNCDILAT ADMN 12:00:00 AM EDT MEDENT ([facility]) PROF [facility] ALLG IMMNTX X W/PRV ALLGIC XTRCS NJXS 2019 12:00:00 AM EDT MEDENT ([facility]) PROF [facility] ALLG IMMNTX X W/PRV ALLGIC XTRCS NJXS 2019 12:00:00 AM EDT MEDENT ([facility]) PROF SVCS ALLG IMMNTX X W/PRV ALLGIC XTRCS NJXS 2019 12:00:00 AM EDT MEDENT ([facility]) PROF MALDONADO ALLG IMMNTX X W/PRV ALLGIC XTRCS NJXS 2019 12:00:00 AM EDT MEDENT ([facility]) PROF OKEEFE ALLG IMMNTX X W/PRV ALLGIC XTRCS NJXS 2019 12:00:00 AM EDT MEDENT ([facility]) PROF [place]EEFE ALLG IMMNTX X W/PRV ALLGIC XTRCS NJXS 2019 12:00:00 AM EDT MEDENT ([facility]) PROF [place]EEFE ALLG IMMNTX X W/PRV ALLGIC XTRCS NJXS 2019 12:00:00 AM EDT MEDENT ([facility]) PROF OKEEFE ALLG IMMNTX X W/PRV ALLGIC XTRCS NJXS 2019 12:00:00 AM EDT MEDENT ([facility]) PROF OKEEFE ALLG IMMNTX X W/PRV ALLGIC XTRCS NJXS 2019 12:00:00 AM EDT MEDENT ([facility]) PREPJ& ALLERGEN IMMUNOTHERAPY 1/REFUGE WORKER ANTIGEN 04/27/2020 12:00:00 AM EDT MEDENT ([facility]) PROF OKEEFE ALLG IMMNTX X W/PRV ALLGIC XTRCS NJXS 2019 12:00:00 AM EDT MEDENT ([facility]) PROF OKEEFE ALLG IMMNTX X W/PRV ALLGIC XTRCS NJXS 2019 12:00:00 AM EDT MEDENT ([facility]) TEST FOR BLOOD, FECES 10/13/2019 12:00:00 AM EST eCW1 (On [facility] Of [facility]) PROF OKEEFE ALLG IMMNTX X W/PRV ALLGIC XTRCS NJXS 2019 12:00:00 AM EST MEDENT ([facility]) PROF [place] ALLG IMMNTX X W/PRV ALLGIC XTRCS NJXS 2019 12:00:00 AM EST MEDENT ([facility]) PROF MALDONADO ALLG IMMNTX X W/PRV ALLGIC XTRCS NJXS 2018 12:00:00 AM EST MEDENT ([facility]) Results ID Date Data Source [id number] 10/22/2020 09:00:00 AM EST [facility] Name Value Range Interpretation Code Description Data Aliyah rce(s) Supporting Document(s) SARS coronavirus 2 RNA Not Detected [facility] [place] This lab was ordered by [facility] and reported by [facility]. ID Date Data Source Ultrasound : Kidneys and Bladder 10/04/2020 12:00:00 AM EST eCW1 (On [facility]) Name Value Range Interpretation Code Description Data Aliyah rce(s) Supporting Document(s) Ultrasound : Kidneys and Bladd er eCW1 (On License Of [facility]) ID Date Data Source UA URINALYSIS 10/04/2020 12:00:00 AM EST eCW1 ([facility]) Name Value Range Interpretation Code Description Data Aliyah rce(s) Supporting Document(s) UA URINALYSIS eCW1 (On [facility] Of [facility]) ID Date Data Source Basic Metabolic Profile (BMP) 10/04/2020 12:00:00 AM EST eCW 1 (On License Of [facility]) Name Value Range Interpretation Code Description Data Aliyah rce(s) Supporting Document(s) 14 7-18 BLOOD UREA NITROGEN eCW1 ([facility]) 0.69 0.55-1.30 CREATININE FOR GFR eCW1 ([facility]) 88 70-100 GLUCOSE, FASTING eCW1 ([facility]) > 60.0 >51 GLOMERULAR FILTRATION RATE eCW 1 (On License Of [facility]) 32 21-32 CARBON DIOXIDE LEVEL eCW1 (Critical access hospital) 140 136-145 SODIUM LEVEL eCW1 ([facility]) 4.8 3.5-5.1 POTASSIUM SERUM eCW1 ([facility]) 104 98-107 CHLORIDE LEVEL eCW1 (On License Of [facility]) 9.6 8.5-10.1 CALCIUM LEVEL eCW1 (On [facility] Of [facility]) ID Date Data Source CBC with Differential 10/04/2020 12:00:00 AM EST eCW1 ([facility]) Name Value Range Interpretation Code Description Data Aliyah rce(s) Supporting Document(s) 5.3 4.0-10.0 WHITE BLOOD COUNT eCW1 ([facility]) 14.8 12.0-15.5 HEMOGLOBIN eCW1 ([facility]) 5.26 4.00-5.40 RED BLOOD COUNT eCW1 ([facility]) 85.0 80.0-96.0 MEAN CORPUSCULAR VOLUME e CW1 ([facility]) 28.1 27.0-33.0 MEAN CORPUSCULAR HEMOGLOB IN eCW1 (On [facility] Of [facility]) 33.1 32.0-36.5 MEAN CORPUSCULAR HGB CONC eCW1 (On [facility]) 44.7 36.0-47.0 HEMATOCRIT eCW1 ([facility]) 20.7 24.0-44.0 LYMPH % eCW1 ([facility]) 272 150-450 PLATELET COUNT, AUTOMATED eCW1 ([facility]) 63.8 36.0-66.0 NEUTROPHILS % eCW1 (On [facility] Of [facility]) 12.7 11.5-14.5 RED CELL DISTRIBUTION WID TH eCW1 (On [facility]) 0.8 0.0-1.0 BASO % eCW1 ([facility]) 3.6 0.0-3.0 EOS % eCW1 ([facility]) 3.4 1.5-8.5 NEUTROPHILS # eCW1 ([facility]) 10.5 0.0-5.0 MONO % eCW1 ([facility]) 0.2 0.0-0.5 EOS # eCW1 ([facility]) 1.1 1.5-5.0 LYMPH # eCW1 ([facility]) 0.6 0.0-0.8 MONO # eCW1 ([facility]) 0.0 0.0-0.2 BASO # eCW1 ([facility]) Procedure Social History Code Duration Value Status Description Data Source(s ) Smoking 10/17/2020 12:00:00 AM EST Never Smoker completed Never S moker eCW1 ([facility]) Smoking 10/04/2020 12:00:00 AM EST Never Smoker completed Never S moker eCW1 (On [facility] Of [facility]) Smoking 06/30/2020 12:00:00 AM EDT Patient has never smoked co mpleted Patient has never smoked MEDENT ([facility] ) Smoking 10/13/2019 12:00:00 AM EST Never Smoker completed Never S moker eCW1 (On [facility]) Smoking 10/13/2019 12:00:00 AM EST Never Smoker completed Never S moker eCW1 (On [facility] Of [facility]) Vital Signs ID Date Data Source UNK Name Value Range Interpretation Code Description Data Source(s) Diastolic blood pressure 72 mm[Hg] 72 mm[Hg] eCW1 ([facility]) Systolic blood pressure 114 mm[Hg] 114 mm[Hg] e CW1 ([facility]) Body mass index (BMI) [Ratio] 28.66 kg/m2 28.66 kg/m2 [facility] (On License Of [facility]) Body height 64 [in_i] 64 [in_i] eCW1 ([facility]) Body weight 75.75 kg 75.75 kg W1 ([facility]) Body weight 167 [lb_av] 167 [lb_av] eCW1 ([facility]) Diastolic blood pressure 72 mm[Hg] 72 mm[Hg] eCW1 (On [facility]) Systolic blood pressure 136 mm[Hg] 136 mm[Hg] e CW1 (On [facility]) Body temperature 97.8 [degF] 97.8 [degF] eCW1 ( On [facility] Of [facility]) Respiratory rate 18 /min 18 /min eCW1 ([facility]) Heart rate 91 /min 91 /min eCW1 ([facility]) Body mass index (BMI) [Ratio] 28.73 kg/m2 28.73 kg/m2 eCW1 (On [facility] Of [facility]) Body height 64 [in_i] 64 [in_i] eCW1 ([facility]) Body weight 167.4 [lb_av] 167.4 [lb_av] eCW1 ([facility]) Body surface area Derived from formula 1.80 m2 1.80 m2 MEDENT ([facility]) Body weight 74.844 kg 74.844 kg MEDENT ([facility]) [place] body weight 120 [lb_av] 120 [lb_av] MEDEN T ([facility]) Body mass index (BMI) [Ratio] 28.3 kg/m2 28.3 k g/m2 MEDENT ([facility]) Body weight 165.00 [lb_av] 165.00 [lb_av] MEDEN T ([facility]) Body height 64 [in_i] 64 [in_i] MEDENT ([facility]) 5'4" Diastolic blood pressure 70 mm[Hg] 70 mm[Hg] [facility] Systolic blood pressure 118 mm[Hg] 118 mm[Hg] EDENT ([facility]) Body mass index (BMI) [Ratio] 27.2 kg/m2 27.2 k g/m2 MEDENT ([facility]) Diastolic blood pressure 76 mm[Hg] 76 mm[Hg] MEDENT ([facility]) Systolic blood pressure 123 mm[Hg] 123 mm[Hg] M EDENT ([facility]) Respiratory rate 18 /min 18 /min MEDENT ( [facility]) Heart rate 69 /min 69 /min [facility] ([facility] Body height 63.5 [in_i] 63.5 [in_i] MEDENT [facility] 5'3.50" Body weight 156.12 [lb_av] 156.12 [lb_av] MEDEN T ([facility]) Diastolic blood pressure 68 mm[Hg] 68 mm[Hg] eCW1 (On [facility]) Systolic blood pressure 124 mm[Hg] 124 mm[Hg] e CW1 (On [facility] Of [facility]) Body mass index (BMI) [Ratio] 27.98 kg/m2 27.98 kg/m2 eCW1 (On [facility] Of [facility]) Body height 64 [in_us] 64 [in_us] eCW1 ([facility]) Body weight Measured 163 [lb_av] 163 [lb_av] eC W1 (On [facility] Of [facility]) Patient Treatment Plan of Care Planned Activity Planned Date Details Description Data Source (s) Tamsulosin hydrochloride 0.4 MG Oral Capsule 10/04/2020 12:00:00 AM EST eCW1 (On [facility] Of [facility])
--- OUTSIDE RECORDS SUMMARY | 2020-10-27 07:12 | CCD | Continuity of Care Document ---
Author Author Luann LOPEZ Organization Unknown Address [address], [place] [address] Phone [phone] Care Team Providers Care Nail Technician Teacher Name Role Phone Nestor Pearl MD [facility] [phone] Problems Active Problems Provider Date Allergic rhinitis [...] Tablets Nestor Pearl MD Vitamin D3 50mcg (1999 Ut) Capsules Unknown Medications Administered in Office Medication SIG Qnty Indications Ordering Provider Date Allergy Injection 2 Or More Injection Colton Lopez M.D. 08/25/2020 Allergy Injection 2 Or More Injection Colton Lopez M.D. 08/18/2020 Allergy Injection 2 Or More Injection Colton Lopez M.D. 08/10/2020 Allergy Injection 2 Or More Injection Colton Lopez M.D. 08/03/2020 Allergy Injection 2 Or More Injection Cloton Lopez M.D. 07/27/2020 Allergy Injection 2 Or [...] Information Available Procedures Date Code Description Status 08/25/2020 15660 Allergy Injection 2 Or More Comp leted 08/18/2020 57142 Allergy Injection 2 Or More Comp leted 08/10/2020 53589 Allergy Injection 2 Or More Comp leted 08/03/2020 94067 Allergy Injection 2 Or More Comp leted 07/27/2020 05067 Allergy Injection 2 Or More Comp leted 07/20/2020 70726 Allergy Injection 2 Or More Comp leted 07/13/2020 24681 Allergy Injection 2 Or More Comp leted 07/06/2020 86664 Allergy Injection 2 Or More Comp leted 06/30/2020 60878 Bronchodilation Resp onsiveness Spirometry Pre/Post Bronchodil Adm Completed 06/29/2020 68889 Allergy Injection 2 Or More Comp leted 06/22/2020 25751 Allergy Injection 2 Or More Comp leted 06/15/2020 27424 Allergy Injection 2 Or More Comp leted 06/09/2020 11192 Allergy Injection 2 Or More Comp leted 06/09/2020 68716 Allergy Injection 2 Or More Comp leted 06/02/2020 43454 Allergy Injection 2 Or More Comp leted 05/19/2020 52801 Allergy Injection 2 Or More Comp leted 05/12/2020 80637 Allergy Injection 2 Or More Comp leted 05/05/2020 44352 Allergy Injection 2 Or More Comp leted 04/27/2020 78349 Allergy Antigens Single Or Multi ple Completed Medical Devices Description No Information Available Encounters Type Date Location Provider Dx Diagnosis Office Visit 06/30/2020 10:00a Main Office Colton Lopez M.D. J30.1 Allergic rhinitis due to pollen J30.81 Allergic rhinitis due to ani mal (cat) (dog) hair and dander J30.89 Other allergic rhinitis J45.20 Mild intermittent asthma, un complicated Assessments Date Code Description Provider 08/25/2020 J30.1 Allergic rhinitis due to pollen Colton Lopez M.D. 08/25/2020 J30.81 Allergic rhinitis due to animal (cat) (dog) hair and dander Colton Lopez M.D. 08/25/2020 J30.89 Other allergic rhinitis Colton Lopez M.D. [...]
[2020-10-27] MEDS ORDERED: propofoL 200 MG/20 ML VIAL As Ordered ONE ×2 (08:23→08:31)
--- NOTE | 2020-10-27 09:01 | ROOR ---
Patient Name: Luann Bailey Procedure Date: 10/27/2020 8:21 AM Date of : 1965 Age: 55 Room: [facility] Gender: Female Note Status: Finalized Procedure: Colonoscopy Indications: Screening for colorectal malignant neoplasm Providers: Ramos Hanks MD Referring MD: Nestor Pearl MD Requesting Provider: Medicines: Monitored Anesthesia Care Complications: No immediate complications. Procedure: Pre-Anesthesia Assessment: - Prior to the procedure, a History and Physical was performed, and patient medications and allergies were reviewed. The patient is competent. The risks and benefits of the procedure and the sedation options and risks were discussed with the patient. All questions were answered and informed consent was obtained. Patient identification and proposed procedure were verified by the physician, the nurse and the anesthesiologist in the procedure room. Mental Status Examination: alert and oriented. Airway Examination: normal oropharyngeal airway and neck mobility. Respiratory Examination: clear to auscultation. CV Examination: normal. Prophylactic Antibiotics: The patient does not require prophylactic antibiotics. Prior Anticoagulants: The patient has taken no previous anticoagulant or antiplatelet agents. ASA Grade Assessment: II - A patient with mild systemic disease. After reviewing the risks and benefits, the patient was deemed in satisfactory condition to undergo the procedure. The anesthesia plan was to use monitored anesthesia care (MAC). Immediately prior to administration of medications, the patient was re-assessed for adequacy to receive sedatives. The heart rate, respiratory rate, oxygen saturations, blood pressure, adequacy of pulmonary ventilation, and response to care were monitored throughout the procedure. The physical status of the patient was re-assessed after the procedure. The Colonoscope was introduced through the anus and advanced to the terminal ileum, with identification of the appendiceal orifice and IC valve. The colonoscopy was performed without difficulty. The patient tolerated the procedure well. The quality of the bowel preparation was good. The terminal ileum, ileocecal valve, appendiceal orifice, and rectum were photographed. Scope insertion time was 2 minutes. Scope withdrawal time was 8 minutes. The total duration of the procedure was 10 minutes. Findings: The perianal and digital rectal examinations were normal. The terminal ileum appeared normal. Non-bleeding external and internal hemorrhoids were found during retroflexion. The hemorrhoids were medium-sized. The exam was otherwise normal throughout the examined colon. Impression: - The examined portion of the ileum was normal. - Non-bleeding external and internal hemorrhoids. - No specimens collected. Recommendation: - Patient has a contact number available for emergencies. The signs and symptoms of potential delayed complications were discussed with the patient. Return to normal activities tomorrow. Written discharge instructions were provided to the patient. - High fiber diet. - Continue present medications. - Use fiber, for example Citrucel, Fibercon, Konsyl or Metamucil. - Repeat colonoscopy in 5 years for screening purposes and due to personal history of colon polyps in past Colonoscopy (done outside [facility], reported by patient). - Return to GI clinic in 5 years. - Return to primary care physician. Procedure Code(s): --- Professional --- 10170, Colonoscopy, flexible; diagnostic, including collection of specimen(s) by brushing or washing, when performed (separate procedure) Diagnosis Code(s): --- Professional --- Z12.11, Encounter for screening for malignant neoplasm of colon K64.8, Other hemorrhoids CPT copyright 2019 [employer]. All rights reserved. The codes documented in this report are preliminary and upon mirror polisher review may be revised to meet current compliance requirements. Ramos Hanks MD Ramos Hanks MD 10/27/2020 9:01:21 AM Electronically signed by Ramos Hanks MD Number of Addenda: 0 Note Initiated On: 10/27/2020 8:21 AM Estimated Blood Loss: Estimated blood loss: none.
[2020-10-27 09:15] VITALS: BP 135/73
== END 2020-10-27 09:21 | disposition home or self-care (01) ==
LOC: M OPP 07:05
PROVIDERS: ATTEND Internal Medicine Gastroenterology
DX: Z12.11 Encounter for screening for malignant neoplasm of colon (principal); K64.8 Other hemorrhoids; E78.5 Hyperlipidemia, unspecified; J45.909 Unspecified asthma, uncomplicated; Z87.442 Personal history of urinary calculi; Z88.0 Allergy status to penicillin; Z88.8 Allergy status to other drugs, medicaments and biological substances; Z91.018 Allergy to other foods; Z79.899 Other long term (current) drug therapy; Z82.49 Family history of ischemic heart disease and other diseases of the circulatory system; Z83.3 Family history of diabetes mellitus; Z80.3 Family history of malignant neoplasm of breast; Z80.0 Family history of malignant neoplasm of digestive organs; Z80.8 Family history of malignant neoplasm of other organs or systems

== ENCOUNTER → 2020-11-08 | Outpatient (CLI) | payer OTHER ==
[~2020-11-08] MED LIST changes: -NS 1,000 ML IV ONE
--- NOTE | 2020-11-08 11:22 | REPPI ---
INDICATION: N20.0 KIDNEY STONE COMPARISON: Correlation with CT dated 10/13/2020 TECHNIQUE: Supine view of the abdomen and pelvis. FINDINGS: Large gallstone identified along with small punctate bilateral renal calculi consistent with the findings on recent CT. Bowel gas pattern suggests moderate fecal stasis without obstruction. Questionable hepatomegaly. Skeletal structures are intact. No obvious foreign body. IMPRESSION: 1. Cholelithiasis. 2. Nephrolithiasis. 3. Moderate fecal stasis. <Electronically signed by Jama Rodarte > 11/08/20 [id number]
== END ==
LOC: M PLAIMG 10:56
PROVIDERS: ATTEND Nurse Practitioner Family
DX: N20.0 Calculus of kidney (principal); K80.20 Calculus of gallbladder without cholecystitis without obstruction

== ENCOUNTER → 2020-11-08 | Outpatient (REF) | payer OTHER | LOC: M SMT 12:39 | PROVIDERS: ATTEND Nurse Practitioner Family | DX: N20.0 Calculus of kidney (principal) ==

== ENCOUNTER → 2020-11-23 | Outpatient (REF) | payer OTHER ==
[2020-11-23 11:30] LABS: APPEARANCE, URINE CLEAR (CLEAR); BACTERIA, URINE AUTO 1+ (NEGATIVE); BILIRUBIN, URINE AUTO NEGATIVE (NEGATIVE); BLOOD, URINE BLOOD NEGATIVE (NEGATIVE); COLOR, URINE STRAW (YELLOW); GLUCOSE, URINE (UA) AUTO NEGATIVE (NEGATIVE); KETONE, URINE AUTO NEGATIVE (NEGATIVE); LEUKOCYTE ESTERASE, URINE AUTO TRACE (NEGATIVE); NITRITE, URINE AUTO NEGATIVE (NEGATIVE); PROTEIN, URINE AUTO NEGATIVE (NEGATIVE); RBC, URINE AUTO 0 /HPF (0-3); SPECIFIC GRAVITY URINE AUTO 1.006 (1.002-1.035); SQUAMOUS EPITHELIAL CELL UR AU 0 /HPF (0-6); UROBILINOGEN, URINE AUTO 0.2 mg/dL (0.0-2.0); WBC, URINE AUTO 3 /HPF (0-3)
== END ==
LOC: M SMT 09:52
PROVIDERS: ATTEND Nurse Practitioner Family
DX: R39.89 Other symptoms and signs involving the genitourinary system (principal)

== ENCOUNTER → 2020-12-06 | Outpatient (CLI) | payer OTHER ==
[~2020-12-06] MED LIST changes: +TAMS1CAP17 PO
--- NOTE | 2020-12-06 11:21 | REPPI ---
INDICATION: N20.0 KIDNEY STONE Z01.818 PREOP TESTING COMPARISON: None. TECHNIQUE: PA and lateral. FINDINGS: The mediastinum and cardiac silhouette are normal. The lung bro are clear and without acute consolidation, effusion, or pneumothorax. The skeletal structures are intact and normal. IMPRESSION: No acute cardiopulmonary process. <Electronically signed by Jama Rodarte > 12/06/20 1116
== END ==
LOC: M PLAIMG 08:46
PROVIDERS: ATTEND Nurse Practitioner Family
DX: Z01.818 Encounter for other preprocedural examination (principal); N20.0 Calculus of kidney

== ENCOUNTER → 2020-12-12 | Outpatient (CLI) | payer OTHER | LOC: M LABSMTC 11:06 | PROVIDERS: ATTEND Anesthesiology | DX: Z11.52 Encounter for screening for COVID-19 (principal) ==

== ENCOUNTER 2020-12-15 07:55 | Day surgery (SDC) | payer OTHER ==
[~2020-12-15] VITALS: Ht 162.6 cm; Wt 76.2 kg
[~2020-12-15 07:55] MED LIST changes: +LR 1,000 ML IV ONE; +UNRESOLVED CLARIFICATION ENTRY XX SCH
--- NOTE | 2020-12-15 08:31 | REP ---
INDICATION: KUB PRIOR TO SDC COMPARISON: 11/08/2020 TECHNIQUE: Supine view of the abdomen and pelvis. FINDINGS: Calcification in the right upper quadrant likely represents gallstone. Small bilateral nephroliths are suggested. The bowel gas pattern is nonspecific. No organomegaly. Skeletal structures are intact. IMPRESSION: Large gallstone and suspected bilateral small nephroliths. <Electronically signed by Jmaa Rodarte > 12/15/20 08
[2020-12-15] MEDS ORDERED: MIDAZOLAM INJ 2MG/2ML VIAL (J2250 PER 1MG) As Ordered ONE (08:46)
[2020-12-15] MEDS ORDERED: fentaNYL 100 MCG/2 ML INJECTION (J3010) As Ordered ONE (08:46)
[2020-12-15] MEDS ORDERED: LevoFLOXacin 500MG/100ML IV BAG (J1956 PER 250MG) As Ordered ONE (09:18)
[2020-12-15] MEDS ORDERED: LevoFLOXacin IV 500 MG in IV 1 EA IV ONE (09:35)
[2020-12-15] MEDS ORDERED: LIDOCAINE 2% 100MG/5ML SDV (FOR ANES.) As Ordered ONE (09:51)
[2020-12-15] MEDS ORDERED: propofoL 200 MG/20 ML VIAL As Ordered ONE (09:51)
[2020-12-15] MEDS ORDERED: OXYC1TAB23 PO (10:45)
[2020-12-15] MEDS ORDERED: ePHEDrine SULFATE 25 MG/5 ML(5MG/ML) SYRINGE As Ordered ONE (10:45)
[2020-12-15] MEDS ORDERED: PHENYLephrine 500MCG 5ML (100MCG/ML) SYRINGE As Ordered ONE (10:45)
--- NOTE | 2020-12-15 11:22 | RO ---
OPERATIVE NOTE DATE OF OPERATION: 12/15/2020 PREOPERATIVE DIAGNOSIS: Left kidney stone. POSTOPERATIVE DIAGNOSIS: Left kidney stone. PROCEDURE: Left extracorporeal shock wave lithotripsy. SURGEON: Daniele Irizarry MD FORENSIC LOCKSMITH: None. ANESTHESIA: MAC. OPERATIVE INDICATIONS: This is a 55-year-old female who was found to have an approximately 5 mm non-obstructing left kidney stone on recent CT scan. She is brought to the operating room today for treatment. DESCRIPTION OF PROCEDURE: The patient was brought to the operating room and MAC anesthesia was administered. Prophylactic antibiotics were infused. She was placed in the supine position in preparation for left-sided extracorporeal shock wave lithotripsy. Fluoroscopy was utilized to monitor stone position and fragmentation throughout the procedure. Shock waves were delivered to the left-sided kidney stone ungated. There were no arrhythmias. The stone did appear to fragment well. After 2500 shocks the procedure was concluded. The patient was awakened from anesthesia and transported to the recovery room in stable condition. ESTIMATED BLOOD LOSS: 0 mL. COMPLICATIONS: None. SPECIMEN: None. PLAN: The patient will follow up in urology clinic in a few weeks with imaging prior to assess for residual stone burden. TAMERA
[2020-12-15] MEDS ORDERED: LR 1,000 ML IV SCH (11:35)
[2020-12-15] MEDS ORDERED: PERCOCET 5MG/325MG TAB PO PRN ×2 (11:35)
[2020-12-15] MEDS ORDERED: ONDANSETRON 4MG/2ML VIAL IV PRN (11:35)
[2020-12-15 12:20] VITALS: BP 129/61
== END 2020-12-15 12:53 | disposition home or self-care (01) ==
LOC: M SDC 07:55
PROVIDERS: ATTEND Urology
DX: N20.0 Calculus of kidney (principal); E78.5 Hyperlipidemia, unspecified; G43.909 Migraine, unspecified, not intractable, without status migrainosus; Z79.899 Other long term (current) drug therapy; Z88.0 Allergy status to penicillin; Z91.018 Allergy to other foods
CPT/HCPCS: 50590; 74018; J1956; J2250; J2370; J3010

== ENCOUNTER → 2020-12-18 | Outpatient (CLI) | payer OTHER ==
[~2020-12-18] MED LIST changes: -LR 1,000 ML IV ONE; +OXYC1TAB23 PO; -UNRESOLVED CLARIFICATION ENTRY XX SCH
== END ==
LOC: M LABSMTC 10:07
PROVIDERS: ATTEND Anesthesiology
DX: Z01.812 Encounter for preprocedural laboratory examination (principal); Z20.822 Contact with and (suspected) exposure to COVID-19

== ENCOUNTER 2020-12-23 09:11 | Day surgery (SDC) | payer OTHER ==
[~2020-12-23] VITALS: Ht 162.6 cm; Wt 75.3 kg
[~2020-12-23 09:11] MED LIST changes: +LR 1,000 ML IV ONE
[2020-12-23] MEDS ORDERED: BUPIVACAINE/EPIN 0.25% 30 ML VIAL As Ordered ONE (11:03)
[2020-12-23] MEDS ORDERED: LIDOCAINE 2% 100MG/5ML SDV (FOR ANES.) As Ordered ONE (11:30)
[2020-12-23] MEDS ORDERED: fentaNYL 250 MCG/5 ML INJECTION (J3010) As Ordered ONE (11:30)
[2020-12-23] MEDS ORDERED: MIDAZOLAM INJ 2MG/2ML VIAL (J2250 PER 1MG) As Ordered ONE (11:30)
[2020-12-23] MEDS ORDERED: ONDANSETRON 4MG/2ML VIAL As Ordered ONE (11:30)
[2020-12-23] MEDS ORDERED: KETOROLAC 60MG 2ML VIAL As Ordered ONE (11:30)
[2020-12-23] MEDS ORDERED: propofoL 200 MG/20 ML VIAL As Ordered ONE (11:30)
[2020-12-23] MEDS ORDERED: PHENYLephrine 500MCG 5ML (100MCG/ML) SYRINGE As Ordered ONE (11:30)
[2020-12-23] MEDS ORDERED: ROCURONIUM BROMIDE 50 MG/5 ML VIAL As Ordered ONE (11:30)
[2020-12-23] MEDS ORDERED: dexameTHASONE 4 MG/ML 1ML VIAL (J1100 PER 1MG) As Ordered ONE (11:30)
[2020-12-23] MEDS ORDERED: ACETAMINOPHEN 1000MG 100ML IV BTL (OFIRMEV) (J0131 PER 10MG) As Ordered ONE (11:37)
[2020-12-23] MEDS ORDERED: SUGAMMADEX SODIUM 500 MG/5 ML VIAL (BRIDION) As Ordered ONE (11:39)
--- NOTE | 2020-12-23 12:28 | RO ---
OPERATIVE NOTE DATE OF OPERATION: 12/23/2020 PREOPERATIVE DIAGNOSIS: Symptomatic cholelithiasis. POSTOPERATIVE DIAGNOSIS: Symptomatic cholelithiasis. PROCEDURE: Robotic cholecystectomy. SURGEON: Monroe Painting DO ASSIST: Karina Law ANESTHESIA: General. EBL: 5. COMPLICATIONS: None. INDICATIONS FOR PROCEDURE: The patient is a 55-year-old female who presents with right upper quadrant abdominal pain, found to have symptomatic cholelithiasis. Recommendation was to proceed with robotic cholecystectomy. Risks and benefits of the procedure including but not limited to bleeding, infection, hernia formation, damage to surrounding structures and need for further surgery were discussed in detail with the patient and informed consent was obtained and procedure was planned. DESCRIPTION OF PROCEDURE: The patient was brought back to operating room 7. After sufficient sedation the abdomen was sterilely prepped and draped. Time out was done to confirm proper patient and proper procedure. An 8 mm incision was made in left upper quadrant, Veress needle was inserted and the abdomen was insufflated to 15 mmHg. Veress needle was removed and 8 mm Optiview port was used to gain access to the abdomen. Once the abdomen was entered three more ports were placed along the upper abdomen into the right upper quadrant. Robot was docked to the port sites. From the console the fundus of the gallbladder was elevated up toward the right shoulder. The cystic duct and cystic artery were carefully dissected free using combination of blunt and sharp dissection. Once they were both clearly identified they were both doubly clipped and cut. The gallbladder was dissected free from the gallbladder fossa using electrocautery. It was removed intact without any bile leakage. It was placed inside a 5 mm Endo Catch bag and brought out through the right lateral port site. Once the gallbladder was removed the abdomen was desufflated. Skin incisions were closed with 4-0 Vicryl subcuticular sutures. The abdomen was cleaned and dried. Steri-Strips, 4 x 4 and tape were applied. This ended the procedure.
[2020-12-23] MEDS ORDERED: MEPERIDINE INJ 25 MG/ML VIAL (J2175) IV PRN (12:30)
[2020-12-23] MEDS ORDERED: METOCLOPRAMIDE INJ 10MG/2ML VIAL (J2765 PER 1) IV PRN (12:30)
[2020-12-23] MEDS ORDERED: LR 1,000 ML IV SCH (12:30)
[2020-12-23] MEDS ORDERED: fentaNYL 100 MCG/2 ML INJECTION (J3010) IV PRN (12:30)
[2020-12-23] MEDS ORDERED: oxyCODONE 5MG TAB PO PRN (12:30)
[2020-12-23] MEDS ORDERED: ONDANSETRON 4MG/2ML VIAL IV PRN (12:30)
[2020-12-23] MEDS ORDERED: NORCO, ANEXSIA 5/325MG TABLET (HYDROcodone/ACETAMINOPHEN) PO PRN (12:35)
[2020-12-23 15:07] VITALS: BP 138/65
== END 2020-12-23 15:10 | disposition home or self-care (01) ==
LOC: M SDC 09:11
PROVIDERS: ATTEND Surgery
DX: K80.10 Calculus of gallbladder with chronic cholecystitis without obstruction (principal); E78.5 Hyperlipidemia, unspecified; J45.909 Unspecified asthma, uncomplicated; G43.909 Migraine, unspecified, not intractable, without status migrainosus; Z79.899 Other long term (current) drug therapy; Z91.018 Allergy to other foods
CPT/HCPCS: 47562; 88304; J0131; J1100; J1885; J2250; J2370; J2405; J3010; S2900

== ENCOUNTER → 2021-01-10 | Outpatient (CLI) | payer OTHER ==
[~2021-01-10] MED LIST changes: -LR 1,000 ML IV ONE
--- NOTE | 2021-01-10 15:36 | REPPI ---
INDICATION: KIDNEY STONES COMPARISON: 12/15/2020 TECHNIQUE: Supine views of the abdomen and pelvis. FINDINGS: Bowel gas pattern is nonspecific and without obstruction or perforation. No organomegaly. No abnormal calcifications. Skeletal structures intact. No obvious urinary tract calcifications are identified on current examination. IMPRESSION: No obvious urinary tract calcifications are identified on current examination. <Electronically signed by Jama Rodarte > 01/10/21 153
== END ==
LOC: M PLAIMG 10:15
PROVIDERS: ATTEND Nurse Practitioner Family
DX: N20.0 Calculus of kidney (principal)

== ENCOUNTER → 2021-01-11 | Outpatient (REF) | payer OTHER | LOC: M SMT 16:44 | PROVIDERS: ATTEND Nurse Practitioner Family | DX: N20.0 Calculus of kidney (principal) ==

== ENCOUNTER → 2021-05-12 | Outpatient (CLI) | payer OTHER ==
[2021-05-12 13:11] LABS: BASO # 0.1 10^3/uL (0.0-0.2); BASO % 1.2 % (0.0-1.0); EOS # 0.3 10^3/uL (0.0-0.5); EOS % 5.8 % (0.0-3.0); HEMATOCRIT 44.6 % (36.0-47.0); HEMOGLOBIN 15.2 g/dl (12.0-15.5); LYMPH # 1.2 10^3/uL (1.5-5.0); LYMPH % 23.1 % (24.0-44.0); MEAN CORPUSCULAR HEMOGLOBIN 28.8 pg (27.0-33.0); MEAN CORPUSCULAR HGB CONC 34.1 g/dl (32.0-36.5); MEAN CORPUSCULAR VOLUME 84.6 fl (80.0-96.0); MONO # 0.6 10^3/uL (0.0-0.8); MONO % 10.6 % (2.0-8.0); NEUTROPHILS # 3.1 10^3/uL (1.5-8.5); NEUTROPHILS % 58.7 % (36.0-66.0); PLATELET COUNT, AUTOMATED 246 10^3/uL (150-450); RED BLOOD COUNT 5.27 10^6/uL (4.00-5.40); WHITE BLOOD COUNT 5.2 10^3/uL (4.0-10.0)
[2021-05-12 13:38] LABS: ALBUMIN 3.5 GM/DL (3.2-5.2); ALT/SGPT 32 U/L (12-78); BILIRUBIN,TOTAL 0.6 MG/DL (0.2-1.0); BLOOD UREA NITROGEN 10 MG/DL (7-18); CALCIUM LEVEL 9.1 MG/DL (8.5-10.1); CARBON DIOXIDE LEVEL 29 MEQ/L (21-32); CHLORIDE LEVEL 109 MEQ/L (98-107); CHOLESTEROL LEVEL 184 MG/DL (<200); CHOLESTEROL RISK RATIO 3.285 (<5); CREATININE FOR GFR 0.74 MG/DL (0.55-1.30); GLOMERULAR FILTRATION RATE > 60.0 (>51); GLUCOSE, FASTING 94 MG/DL (70-100); HDL CHOLESTEROL 56 MG/DL (>40); LDL CHOLESTEROL 79 MG/DL (<100); NON-HDL-C 128 MG/DL; POTASSIUM SERUM 4.2 MEQ/L (3.5-5.1); SODIUM LEVEL 144 MEQ/L (136-145); THYROID STIMULATING HORMONE 0.613 uIU/ML (0.358-3.740); TOTAL PROTEIN 6.8 GM/DL (6.4-8.2); TRIGLYCERIDES LEVEL 243 MG/DL (<150)
[2021-05-12 15:21] LABS: HEPATITIS C VIRUS ABY INDEX < 0.0 INDEX (<0.8)
== END ==
LOC: M PLALAB 08:48
PROVIDERS: ATTEND Internal Medicine
DX: J45.909 Unspecified asthma, uncomplicated (principal); Z11.59 Encounter for screening for other viral diseases; E78.5 Hyperlipidemia, unspecified

== ENCOUNTER → 2021-11-29 | Outpatient (CLI) | payer OTHER ==
[~2021-11-29] MED LIST changes: -D31000TA2 PO; -MONT10TA10 PO; +MONT10TA97 PO; +VITA100093 PO
== END ==
LOC: M WHC 07:58
PROVIDERS: ATTEND Advanced Practice Midwife
DX: Z12.31 Encounter for screening mammogram for malignant neoplasm of breast (principal); Z53.9 Procedure and treatment not carried out, unspecified reason

== ENCOUNTER → 2021-11-29 | Outpatient (CLI) | payer OTHER | LOC: M WHC 10:58 | PROVIDERS: ATTEND Advanced Practice Midwife | DX: Z12.31 Encounter for screening mammogram for malignant neoplasm of breast (principal); R92.8 Other abnormal and inconclusive findings on diagnostic imaging of breast; N63.20 Unspecified lump in the left breast, unspecified quadrant ==

== ENCOUNTER → 2021-12-07 | Outpatient (CLI) | payer OTHER | LOC: M WHC 12:41 | PROVIDERS: ATTEND Advanced Practice Midwife | DX: N63.20 Unspecified lump in the left breast, unspecified quadrant (principal) | CPT/HCPCS: 77065; G0279 ==

== ENCOUNTER → 2022-01-25 | Outpatient (CLI) | payer OTHER | LOC: M PLALAB 10:39 | PROVIDERS: ATTEND Physician Assistant | DX: R93.89 Abnormal findings on diagnostic imaging of other specified body structures (principal); Z87.442 Personal history of urinary calculi ==

== ENCOUNTER → 2023-01-30 | Outpatient (CLI) | payer OTHER | LOC: M PLAIMG 09:12 → M PLALAB 09:12 | PROVIDERS: ATTEND Physician Assistant | DX: N20.0 Calculus of kidney (principal); Z87.442 Personal history of urinary calculi ==

== ENCOUNTER → 2023-08-05 | Outpatient (REF) | payer OTHER | LOC: M SFHCPLAZ 09:28 | PROVIDERS: ATTEND Student in an Organized Health Care Education/Training Program | DX: Z53.9 Procedure and treatment not carried out, unspecified reason (principal); M79.631 Pain in right forearm ==

== ENCOUNTER → 2023-08-07 | Outpatient (CLI) | payer OTHER | LOC: M RAD 12:59 | PROVIDERS: ATTEND Student in an Organized Health Care Education/Training Program | DX: M79.631 Pain in right forearm (principal) ==

== ENCOUNTER → 2023-08-15 | Outpatient (CLI) | payer OTHER | LOC: M LAB 09:58 | PROVIDERS: ATTEND Student in an Organized Health Care Education/Training Program | DX: K21.9 Gastro-esophageal reflux disease without esophagitis (principal) ==

== ENCOUNTER → 2023-10-17 | Outpatient (CLI) | payer OTHER | LOC: M WHC 13:15 | PROVIDERS: ATTEND Advanced Practice Midwife | DX: Z12.31 Encounter for screening mammogram for malignant neoplasm of breast (principal) ==

== ENCOUNTER → 2024-05-21 | Outpatient (CLI) | payer OTHER | LOC: M PLALAB 09:53 → M PLAIMG 09:53 | PROVIDERS: ATTEND Physician Assistant | DX: N20.0 Calculus of kidney (principal) ==

== ENCOUNTER → 2024-05-29 | Outpatient (CLI) | payer OTHER | LOC: M WHC 07:49 | PROVIDERS: ATTEND Internal Medicine Gastroenterology | DX: I85.00 Esophageal varices without bleeding (principal); R93.2 Abnormal findings on diagnostic imaging of liver and biliary tract ==

== ENCOUNTER → 2024-07-21 | Outpatient (CLI) | payer OTHER | LOC: M RAD 07:53 | PROVIDERS: ATTEND Physician Assistant Medical | DX: R93.2 Abnormal findings on diagnostic imaging of liver and biliary tract (principal); I85.00 Esophageal varices without bleeding; K76.0 Fatty (change of) liver, not elsewhere classified; Z90.49 Acquired absence of other specified parts of digestive tract; N20.0 Calculus of kidney; N28.1 Cyst of kidney, acquired; R16.0 Hepatomegaly, not elsewhere classified ==

== ENCOUNTER → 2025-03-31 | Outpatient (CLI) | payer OTHER | LOC: M WHC 08:37 | PROVIDERS: ATTEND Advanced Practice Midwife | DX: Z12.31 Encounter for screening mammogram for malignant neoplasm of breast (principal); R92.323 Mammographic fibroglandular density, bilateral breasts ==

== ENCOUNTER → 2025-04-15 | Outpatient (CLI) | payer OTHER | LOC: M RAD 07:59 | PROVIDERS: ATTEND Physician Assistant Medical | DX: K76.0 Fatty (change of) liver, not elsewhere classified (principal); I85.00 Esophageal varices without bleeding; N28.1 Cyst of kidney, acquired; Z90.49 Acquired absence of other specified parts of digestive tract ==

== ENCOUNTER → 2025-06-10 | Outpatient (REF) | payer OTHER ==
[2025-06-10 19:34] LABS: APPEARANCE, URINE HAZY (CLEAR); BACTERIA, URINE AUTO 1+ (NEGATIVE); BILIRUBIN, URINE AUTO NEGATIVE (NEGATIVE); BLOOD, URINE BLOOD NEGATIVE (NEGATIVE); GLUCOSE, URINE (UA) AUTO NEGATIVE (NEGATIVE); KETONE, URINE AUTO NEGATIVE (NEGATIVE); LEUKOCYTE ESTERASE, URINE AUTO NEGATIVE (NEGATIVE); MUCUS, URINE SMALL (NEGATIVE); NITRITE, URINE AUTO NEGATIVE (NEGATIVE); PROTEIN, URINE AUTO NEGATIVE (NEGATIVE); RBC, URINE AUTO 0 /HPF (0-3); SPECIFIC GRAVITY URINE AUTO 1.016 (1.002-1.035); SQUAMOUS EPITHELIAL CELL UR AU 1 /HPF (0-6); UROBILINOGEN, URINE AUTO 0.2 mg/dL (0.0-2.0); WBC, URINE AUTO 2 /HPF (0-3)
== END ==
LOC: M LAB REF 18:16
PROVIDERS: ATTEND Physician Assistant
DX: N32.89 Other specified disorders of bladder (principal)

== ENCOUNTER → 2025-07-02 | Outpatient (CLI) | payer OTHER | LOC: M RAD 09:19 | PROVIDERS: ATTEND Physician Assistant | DX: N20.0 Calculus of kidney (principal); N32.89 Other specified disorders of bladder ==